=== PATIENT | female | born 1950 | race Caucasian/White ===

== ENCOUNTER 2018-03-05 00:03 | Inpatient (IN) | payer MEDICARE, OTHER ==
[2018-03-05] MEDS ORDERED: ONDANSETRON 4 MG/2 ML VIAL IVP STA ×2 (01:07→04:07)
[2018-03-05] MEDS ORDERED: SODIUM CHLORIDE 0.9% 1,000 ML IV STA ×2 (01:07)
[2018-03-05] MEDS ORDERED: MORPHINE SULFATE 4 MG/ML SYRINGE IVP STA (01:34)
[2018-03-05 01:51] LABS: Basophils % (A) 0 %; Eosinophils # (A) 0.1 k/uL (0-0.7); Eosinophils % (A) 0 %; HCT 39.4 % (34.0-46.0); HGB 13.8 gm/dL (11.4-16.0); Lymphocytes # (A) 1.2 k/uL (1.0-4.8); Lymphocytes % (A) 7 %; MCH 32.3 pg (25.0-35.0); MCV 92.3 fL (80.0-100.0); Mean Platelet Volume 6.2; Monocytes # (A) 1.1 k/uL (0-1.0); Monocytes % (A) 7 %; Neutrophils # (A) 13.9 k/uL (1.3-7.7); Neutrophils % (A) 84 %; Platelet Count 268 k/uL (150-450); RBC 4.27 m/uL (3.80-5.40); RDW 12.9 % (11.5-15.5); WBC 16.5 k/uL (3.8-10.6)
[2018-03-05 02:03] LABS: Albumin 4.3 g/dL (3.5-5.0); Calcium 9.2 mg/dL (8.4-10.2); Potassium 3.5 mmol/L (3.5-5.1); Total Bilirubin 0.9 mg/dL (0.2-1.3); Total Protein 6.7 g/dL (6.3-8.2)
--- NOTE | 2018-03-05 02:58 | CT ---
EXAMINATION TYPE: CT abdomen pelvis wo con DATE OF EXAM: 03/05/2018 COMPARISON: None HISTORY: NVD for 3 days, dehydrated CT DLP: 321.40 mGycm Automated exposure control for dose reduction was used. TECHNIQUE: Helical acquisition of images was performed from the lung bases through the pelvis. FINDINGS: Lung bases are clear of consolidation. There is minimal fibrotic change at the right medial lung base . There is small hiatal hernia. Liver shows no focal defect. There is clips from cholecystectomy. Splee n appears normal. There is no pancreatic mass. There is no adrenal mass. Kidneys have normal size and contour. There is no hydronephrosis. There is no retroperitoneal adenopathy. There is wall thickening and fat stranding around the mid sigmoid colon. There are numerous sigmoid d iverticula. There is no free air. There are spondylotic changes in the lumbar spine. There is osteosc lerosis at L1-2 disc. There is no ascites. Bladder distends smoothly. There is hysterectomy. Appendix is not seen. There is no sign of appendicitis. IMPRESSION: INFLAMMATORY CHANGES IN THE MID SIGMOID COLON CONSISTENT WITH DIVERTICULITIS. NO DRAINABLE FLUID JOHN ECTION.
--- NOTE | 2018-03-05 03:03 | ED ---
Nausea/Vomiting/Diarrhea HPI - General Source: patient, family, RN notes reviewed, old records reviewed Mode of arrival: wheelchair Limitations: no limitations <Rosaline Rincon - Last Filed: 03/05/18 03:50> <Bro Puga - Last Filed: 03/05/18 08:57> - General Chief complaint: Nausea/Vomiting/Diarrhea Stated complaint: NVD Time Seen by Provider: 03/05/18 01:07 - History of Present Illness Initial comments: Patient 67 old female present is a chief complaint of 3 days nausea vomiting diarrhea. No bloody emesis or stools. She reports just feels very weak and dehydrated this time. Patient states that she also started having some bilateral lower abdominal pain. Surgical history includes C-sections, hysterectomy, gallbladder removal and appendectomy. Denies any other symptoms such as back pain dysuria or hematuria this time. (Rosaline Rincon) - Related Data Home Medications Medication Instructions Recorded Confirmed Calcium Carbonate/Vitamin D3 1 tab PO DAILY 12/11/15 03/05/18 [Calcium 600 + Vit D Tablet] ALPRAZolam [Xanax] 0.25 mg PO TID PRN 03/05/18 03/05/18 Atorvastatin [Lipitor] 10 mg PO HS 03/05/18 03/05/18 Citalopram Hydrobromide [CeleXA] 20 mg PO HS 03/05/18 03/05/18 Clopidogrel Bisulfate [Plavix] 75 mg PO DAILY 03/05/18 03/05/18 Pantoprazole Sodium [Protonix] 40 mg PO DAILY 03/05/18 03/05/18 Previous Rx's Medication Instructions Recorded lamoTRIgine [LaMICtal] 150 mg PO BID #20 tab 01/13/14 Allergies Allergy/AdvReac Type Severity Reaction Status Date / Time aspirin Allergy Dyspnea Verified 03/05/18 06:54 Review of Systems ROS Other: All systems not noted in ROS Statement are negative. <Rosaline Rincon - Last Filed: 03/05/18 03:50> ROS Other: All systems not noted in ROS Statement are negative. <Bro Puga - Last Filed: 03/05/18 08:57> ROS Statement: Those systems with pertinent positive or pertinent negative responses have been documented in the HPI. Past Medical History Past Medical History: Asthma, Hyperlipidemia, Hypertension, Seizure Disorder Additional Past Medical History / Comment(s): head injury from falling on ice in 2004 History of Any Multi-Drug Resistant Organisms: None Reported Past Surgical History: Adenoidectomy, Appendectomy, Section, Cholecystectomy, Hysterectomy, Tonsillectomy Past Anesthesia/Blood Transfusion Reactions: No Reported Reaction Past Psychological History: Anxiety, Depression, Panic Disorder Smoking Status: Former smoker Past Alcohol Use History: Occasional Past Drug Use History: None Reported - Past Family History Mother Family Medical History: Cancer Additional Family Medical History / Comment(s): pancreatic cancer Father Family Medical History: Cancer, Chest Pain / Angina Additional Family Medical History / Comment(s): prostate cancer <Rosaline Rincon - Last Filed: 03/05/18 03:50> General Exam Limitations: no limitations General appearance: alert, in no apparent distress Head exam: Present: atraumatic, normocephalic, normal inspection Eye exam: Present: normal appearance, PERRL, EOMI. Absent: scleral icterus, conjunctival injection, periorbital swelling ENT exam: Present: normal exam, mucous membranes moist Neck exam: Present: normal inspection. Absent: tenderness, meningismus, lymphadenopathy Respiratory exam: Present: normal lung sounds bilaterally. Absent: respiratory distress, wheezes, rales, rhonchi, stridor Cardiovascular Exam: Present: regular rate, normal rhythm, normal heart sounds. Absent: systolic murmur, diastolic murmur, rubs, gallop, clicks GI/Abdominal exam: Present: tenderness (RLQ pain, LLQ pain), normal bowel sounds. Absent: soft, distended, guarding, rebound, rigid Extremities exam: Present: normal inspection, full ROM, normal capillary refill. Absent: tenderness, pedal edema, joint swelling, calf tenderness Back exam: Present: normal inspection Neurological exam: Present: alert, oriented X3, CN II-XII intact Psychiatric exam: Present: normal affect, normal mood Skin exam: Present: warm, dry, intact, normal color. Absent: rash <Rosaline Rincon - Last Filed: 03/05/18 03:50> <Bro Puga - Last Filed: 03/05/18 08:57> - General Exam Comments Initial Comments: Dehydrated 67-year-old female. Alert and oriented. (Rosaline Rincon) Vital Signs 03/05/18 03/05/18 03/05/18 00:18 03:29 07:22 Temperature 99.0 F 101 F H 98.9 F Pulse Rate 117 H 104 H 105 H Respiratory 18 18 18 Rate Blood Pressure 105/72 117/82 124/60 O2 Sat by Pulse 96 98 96 Oximetry Medical Decision Making - Lab Data Result diagrams: 03/05/18 01:05 03/05/18 01:05 - Radiology Data Radiology results: report reviewed <Rosaline Rincon - Last Filed: 03/05/18 03:50> - Lab Data Result diagrams: 03/05/18 01:05 03/05/18 01:05 <Bro Puga - Last Filed: 03/05/18 08:57> - Medical Decision Making 67-year-old female presented to [place] to [facility] of nausea and vomiting for the past 3 days, initial temperature in the emergency room did not show fever. Hours rechecked was 101. She has bilateral lower quadrant tenderness. Lab work was reviewed to his leukocytosis 16.5. Patient does have acute kidney injury due to severe dehydration over the past 3 days. Patient states he had a pelvis is evidence of diverticulitis. His biceps criteria tachycardic temperature and source of infection. Patient was started on Levaquin and Flagyl. Given aggressive IV fluid hydration. All questions answered return parameters were discussed. (Rosaline Rincon) - Lab Data Lab Results 03/05/18 03/05/18 Range/Units 01:05 01:05 WBC 16.5 H (3.8-10.6) k/uL RBC 4.27 (3.80-5.40) m/uL Hgb 13.8 (11.4-16.0) gm/dL Hct 39.4 (34.0-46.0) % MCV 92.3 (80.0-100.0) fL MCH 32.3 (25.0-35.0) pg MCHC 35.0 (31.0-37.0) g/dL RDW 12.9 (11.5-15.5) % Plt Count 268 (150-450) k/uL Neutrophils % 84 % Lymphocytes % 7 % Monocytes % 7 % Eosinophils % 0 % Basophils % 0 % Neutrophils # 13.9 H (1.3-7.7) k/uL Lymphocytes # 1.2 (1.0-4.8) k/uL Monocytes # 1.1 H (0-1.0) k/uL Eosinophils # 0.1 (0-0.7) k/uL Basophils # 0.0 (0-0.2) k/uL Sodium 140 (137-145) mmol/L Potassium 3.5 (3.5-5.1) mmol/L Chloride 104 (98-107) mmol/L Carbon Dioxide 24 (22-30) mmol/L Anion Gap 12 mmol/L BUN 21 H (7-17) mg/dL Creatinine 1.30 H (0.52-1.04) mg/dL Est GFR (CKD-EPI)AfAm 49 (>60 ml/min/1.73 sqM) Est GFR (CKD-EPI)NonAf 43 (>60 ml/min/1.73 sqM) Glucose 164 H (74-99) mg/dL Calcium 9.2 (8.4-10.2) mg/dL Total Bilirubin 0.9 (0.2-1.3) mg/dL AST 23 (14-36) U/L ALT 42 (9-52) U/L Alkaline Phosphatase 113 (38-126) U/L Total Protein 6.7 (6.3-8.2) g/dL Albumin 4.3 (3.5-5.0) g/dL Amylase 34 (30-110) U/L Lipase 15 L (23-300) U/L - Radiology Data Lipitor changes in the mid sigmoid colon consistent with diverticulitis. No drainable bowl fluid collection. (Rosaline Rincon) Disposition Is patient prescribed a controlled substance at d/c from ED?: No When asked, does pt state using other controlled substances?: No If prescribed controlled substance>3 days was MAPS reviewed?: No If opioid is for acute pain is fill amount 7 days or less?: No If Rx opioid, was Start Talking consent form obtained?: No Time of Disposition: 03:46 <Rosaline Rincon - Last Filed: 03/05/18 03:50> <Bro Puga - Last Filed: 03/05/18 08:57> Clinical Impression: Sepsis, SHAI (acute kidney injury), Diverticulitis Disposition: ADMITTED IP TO THIS HOSP Condition: Stable
[2018-03-05] MEDS ORDERED: SODIUM CHLORIDE 0.9% 1,000 ML IV ONE (03:41)
[2018-03-05] MEDS ORDERED: LEVOFLOXACIN 750MG-D5W PMX 750 MG in DEXTROSE/WATER 1 150ML.BAG IVPB STA (03:44)
[2018-03-05] MEDS ORDERED: metroNIDAZOLE-NS PMX 500 MG in SALINE 1 100ML.BAG IVPB STA (03:44)
[2018-03-05] MEDS ORDERED: ACETAMINOPHEN TAB 500 MG TAB PO STA (03:44)
[2018-03-05] MEDS ORDERED: ONDANSETRON 4 MG/2 ML VIAL IVP PRN (03:46)
[2018-03-05] MEDS ORDERED: MORPHINE SULFATE 4 MG/ML SYRINGE IV PRN (03:46)
[2018-03-05] MEDS ORDERED: LORazepam 2 MG/ML INJ IV PRN (03:46)
[2018-03-05] MEDS ORDERED: NALOXONE 0.4 MG/ML 1 ML VIAL IV PRN (03:46)
[2018-03-05] MEDS ORDERED: Acetaminophen-Codeine 300-30mg TAB PO PRN (03:46)
[2018-03-05] MEDS ORDERED: IBUPROFEN 400 MG TAB PO PRN (03:46)
[2018-03-05 05:48] LABS: Appearance,Urine Clear (Clear); Bacteria,Urine Rare /hpf; Bilirubin,Urine Negative (Negative); Blood,Urine Large (Negative); Cellular Casts,Urine 3 /lpf (0); Color,Urine Yellow; Glucose,Urine (UA) Negative (Negative); Hyaline Casts,Urine 31 /lpf (0-2); Ketones,Urine Negative (Negative); Leukocyte Esterase,Urine Negative (Negative); Mucus,Urine Occasional /hpf; Nitrite,Urine Negative (Negative); Protein,Urine 2+ (Negative); RBC,Urine 66 /hpf (0-5); Specific Gravity,Urine 1.025 (1.001-1.035); Squamous Epithelial Cell,Urine <1 /hpf (0-4); WBC,Urine 9 /hpf (0-5)
[2018-03-05] MEDS ORDERED: IPRATROPIUM-ALBUTEROL 3 ML NEB INHALATION PRN (06:19)
[2018-03-05] MEDS ORDERED: ALPRAZolam 0.25 MG TAB PO PRN ×2 (07:01→11:10)
--- NOTE | 2018-03-05 07:03 | P.HPIM ---
History of Present Illness H&P Date: 03/05/18 Chief Complaint: Nausea vomiting and diarrhea 67-year-old female with history of hypertension and asthma and seizures. Patient presented to the hospital with reports of intractable nausea and vomiting for the past 2-3 days. She reports that this is also associated with diarrhea nonbloody non-melanotic. She also reports some abdominal pain colicky in nature lower abdominal 8 out of 10 in severity radiating from one side to the other no specific relieving or aggravating factors. She denies any fevers but reports some chills. She is unable to keep anything down and reports feeling dehydrated. She denies any dysuria or hematuria or any flank pains. Denies any chest pain or trouble breathing. Denies any unsanitary source of food or any sick contacts. Denies any recent travel. Denies any focal neurologic deficits Review of Systems Pertinent positives as noted in HPI. All other systems were reviewed and are negative Past Medical History Past Medical History: Asthma, Hyperlipidemia, Hypertension, Seizure Disorder Additional Past Medical History / Comment(s): head injury from falling on ice in 2004 History of Any Multi-Drug Resistant Organisms: None Reported Past Surgical History: Adenoidectomy, Appendectomy, Section, Cholecystectomy, Hysterectomy, Tonsillectomy Past Anesthesia/Blood Transfusion Reactions: No Reported Reaction Past Psychological History: Anxiety, Depression, Panic Disorder Smoking Status: Former smoker Past Alcohol Use History: Occasional Past Drug Use History: None Reported - Past Family History Mother Family Medical History: Cancer Additional Family Medical History / Comment(s): pancreatic cancer Father Family Medical History: Cancer, Chest Pain / Angina Additional Family Medical History / Comment(s): prostate cancer Medications and Allergies Home Medications Medication Instructions Recorded Confirmed Type lamoTRIgine [LaMICtal] 150 mg PO BID #20 tab 01/13/14 03/05/18 Rx Calcium Carbonate/Vitamin D3 1 tab PO DAILY 12/11/15 03/05/18 History [Calcium 600 + Vit D Tablet] ALPRAZolam [Xanax] 0.25 mg PO TID PRN 03/05/18 03/05/18 History Atorvastatin [Lipitor] 10 mg PO HS 03/05/18 03/05/18 History Citalopram Hydrobromide [CeleXA] 20 mg PO HS 03/05/18 03/05/18 History Clopidogrel Bisulfate [Plavix] 75 mg PO DAILY 03/05/18 03/05/18 History Pantoprazole Sodium [Protonix] 40 mg PO DAILY 03/05/18 03/05/18 History Allergies Allergy/AdvReac Type Severity Reaction Status Date / Time aspirin Allergy Dyspnea Verified 03/05/18 06:54 Physical Exam Vitals: Vital Signs Temp Pulse Resp BP Pulse Ox 03/05/18 03:29 101 F H 104 H 18 117/82 98 03/05/18 00:18 99.0 F 117 H 18 105/72 96 Intake and Output 03/04/18 03/04/18 03/05/18 14:59 22:59 06:59 Other: Weight 71.668 kg Constitutional: No acute distress, conversant, pleasant Eyes: Anicteric sclerae, moist conjunctiva, no lid-lag Pupils equal round reactive to light ENMT: NC/AT Oropharynx clear, no erythema, or exudates Neck: Supple, FROM, no masses, or JVD No carotid bruits No thyromegaly Lungs: Clear to auscultation Clear to percussion Normal respiratory effort, no accessory muscle use Cardiovascular: Heart regular in rate and rhythm, No murmurs, gallops, or rubs No peripheral edema Abdominal: Soft abdomen, tenderness to palpation of the left lower quadrant with voluntary guarding no rebound or rigidity Abdomen moving with respiration Normoactive bowel sounds No hepatomegaly, No splenomegaly No palpable mass No abdominal wall hernia noted Skin: Normal temperature, tone, texture, turgor No induration No subcutaneous nodules No rash, lesions No ulcers Extremities: No digital cyanosis No clubbing Pedal pulses intact and symmetrical Radial pulses intact and symmetrical No calf tenderness Psychiatric: Alert and oriented to person, place and time Appropriate affect fair judgment Neuro Muscles Strength 5/5 in all 4 extremities Sensation to light touch grossly present throughout Cranial nerves II-XII grossly intact No focal sensory deficits Lymphatics: no palpable cervical or supraclavicular , or inguinal lymph nodes Results CBC & Chem 7: 03/05/18 01:05 03/05/18 01:05 Labs: Abnormal Lab Results - Last 24 Hours (Table) 03/05/18 03/05/18 03/05/18 Range/Units 01:05 01:05 05:16 WBC 16.5 H (3.8-10.6) k/uL Neutrophils # 13.9 H (1.3-7.7) k/uL Monocytes # 1.1 H (0-1.0) k/uL BUN 21 H (7-17) mg/dL Creatinine 1.30 H (0.52-1.04) mg/dL Glucose 164 H (74-99) mg/dL Lipase 15 L (23-300) U/L Urine Protein 2+ H (Negative) Urine Blood Large H (Negative) Urine RBC 66 H (0-5) /hpf Urine WBC 9 H (0-5) /hpf Urine Bacteria Rare H (None) /hpf Hyaline Casts 31 H (0-2) /lpf Urine Mucus Occasional H (None) /hpf Assessment and Plan Assessment: 67-year-old female with history of hypertension and seizures. Patient admitted to the hospital as inpatinet with anticipated length of stay of more than than 48 hours for acute diverticulitis and acute kidney injury due to decreased by mouth intake over the past 3 days from repeated nausea and vomiting. Plan: Sepsis secondary to acute diverticulitis Acute diverticulitis IV antibiotic with Levaquin and Flagyl, due to a she nausea and vomiting Symptomatic control IV fluid hydration Pain control Nothing by mouth Acute kidney injury secondary to prerenal ATN from dehydration and poor by mouth intake Avoid nephrotoxic meds IV fluid hydration Monitor urine output Monitor renal function History of hypertension currently controlled without medications History of seizure currently stable Continue Lamictal DVT prophylaxis on heparin subcu 3 times a day Surrogate decision-maker: Bertram patient CODE STATUS: Full code Anticipated discharge: 48-[address]: Home A total of 50 minutes was spent on the care of this complex patient more than 50 % of the time was spent in counseling and care coordination.
[2018-03-05] MEDS ORDERED: PANTOPRAZOLE 40 MG TABLET PO SCH (07:30)
[2018-03-05] MEDS ORDERED: NON-FORMULARY DRUG (Omeprazole [Omeprazole] 20 MG) PO SCH (09:00)
[2018-03-05] MEDS ORDERED: lamoTRIgine 100 MG TAB PO SCH (09:00)
[2018-03-05] MEDS ORDERED: PANTOPRAZOLE 40 MG/10 ML VIAL IV SCH (09:00)
[2018-03-05] MEDS: LAMOTRIGINE 150 MG PO SCH ×2 (12:17→21:24)
[2018-03-05] MEDS: CLOPIDOGREL 75 MG TAB PO SCH (12:18)
[2018-03-05] MEDS: HEPARIN SODIUM,PORCINE 5,000 UNIT/ML 1 ML VIAL SQ SCH ×2 (12:18→17:11)
[2018-03-05] MEDS: lamoTRIgine 100 MG TAB PO SCH ×2 (12:54→21:24)
--- NOTE | 2018-03-05 13:40 | P.PN ---
Progress Note - Text Progress Note Date: 03/05/18 The patient is a 67-year-old female admitted with sepsis due to acute diverticulitis, presenting with leukocytosis and fever, negative lactic acidemia and is currently on IV antibiotics with Flagyl and Levaquin. Patient continues to be nauseated all change her to Zofran 4 mg IV every 4 when necessary and Phenergan 12.5 every 6 when necessary. Continue other supportive therapies and IV fluids we'll resume her Lamictal and continue to follow her clinical course
[2018-03-05] MEDS: ONDANSETRON 4 MG/2 ML VIAL IVP PRN ×2 (17:11→20:46)
[2018-03-05] MEDS: ALPRAZOLAM 1 MG PO PRN (20:39)
[2018-03-05] MEDS: CITALOPRAM HYDROBROMIDE 20 MG TAB PO SCH (20:40)
[2018-03-05] MEDS: ATORVASTATIN 10 MG TAB PO SCH (20:40)
[2018-03-05] MEDS ORDERED: SIMVASTATIN PO SCH (21:00)
[2018-03-06] MEDS: HEPARIN SODIUM,PORCINE 5,000 UNIT/ML 1 ML VIAL SQ SCH ×3 (01:05→16:35)
[2018-03-06] MEDS: SODIUM CHLORIDE 0.9% 1,000 ML IV SCH ×4 (02:46→13:41)
[2018-03-06] MEDS: ALPRAZOLAM 1 MG PO PRN ×3 (04:19→21:05)
[2018-03-06] MEDS: ONDANSETRON 4 MG/2 ML VIAL IVP PRN ×4 (04:21→21:09)
[2018-03-06] MEDS: lamoTRIgine 100 MG TAB PO SCH ×2 (08:20→21:06)
[2018-03-06] MEDS: PANTOPRAZOLE 40 MG TABLET PO SCH (08:22)
[2018-03-06] MEDS: CLOPIDOGREL 75 MG TAB PO SCH ×2 (08:23→21:04)
[2018-03-06] MEDS: LAMOTRIGINE 150 MG PO SCH ×2 (08:25→21:04)
[2018-03-06 11:34] LABS: ALT 30 U/L (9-52); AST 18 U/L (14-36); Albumin 2.7 g/dL (3.5-5.0); Alkaline Phosphatase 67 U/L (38-126); Anion Gap 4 mmol/L; Blood Urea Nitrogen 10 mg/dL (7-17); Calcium 7.9 mg/dL (8.4-10.2); Carbon Dioxide 23 mmol/L (22-30); Chloride 114 mmol/L (98-107); Glucose 85 mg/dL (74-99); Potassium 3.3 mmol/L (3.5-5.1); Sodium 141 mmol/L (137-145); Total Bilirubin 0.3 mg/dL (0.2-1.3); Total Protein 4.5 g/dL (6.3-8.2)
[2018-03-06 12:00] LABS: Basophils % (A) 0 %; Eosinophils # (A) 0.2 k/uL (0-0.7); Eosinophils % (A) 2 %; HCT 30.5 % (34.0-46.0); Lymphocytes # (A) 1.4 k/uL (1.0-4.8); Lymphocytes % (A) 15 %; MCH 31.5 pg (25.0-35.0); MCHC 33.2 g/dL (31.0-37.0); Mean Platelet Volume 6.3; Monocytes # (A) 0.5 k/uL (0-1.0); Monocytes % (A) 6 %; Neutrophils # (A) 6.6 k/uL (1.3-7.7); Neutrophils % (A) 75 %; Platelet Count 234 k/uL (150-450); RBC 3.22 m/uL (3.80-5.40); WBC 8.8 k/uL (3.8-10.6)
[2018-03-06 12:02] LABS: HGB 10.1 gm/dL (11.4-16.0)
[2018-03-06] MEDS: ACETAMINOPHEN TAB 325 MG TAB PO PRN ×2 (12:05→20:06)
[2018-03-06] MEDS: LEVOFLOXACIN 750MG-D5W PMX 750 MG in DEXTROSE/WATER 1 150ML.BAG IVPB SCH (12:06)
[2018-03-06] MEDS ORDERED: SODIUM CHLORIDE 0.9% 1,000 ML IV ONE (13:31)
--- NOTE | 2018-03-06 13:34 | P.PN ---
Subjective Progress Note Date: 03/06/18 Patient ambulatory to the restroom, reports diarrhea abdominal pain is slightly improved. Denies any fever or chills, still appears to be tachycardic but is normotensive, no acute events overnight Objective - Vital Signs Vital signs: Vital Signs Temp 98.4 F 03/06/18 06:13 Pulse 105 H 03/06/18 06:13 Resp 18 03/06/18 06:13 BP 145/66 03/06/18 06:13 Pulse Ox 93 L 03/06/18 06:13 Intake & Output 03/05/18 03/06/18 03/06/18 18:59 06:59 18:59 Intake Total 700 960 960 Balance 700 960 960 Weight 71.668 kg Intake: IV 960 960 Sodium Chloride 0.9% 1, 960 960 000 ml @ 120 mls/hr IV . Q8H20M [facility] Rx#:[id number] Intake, IV Titration 700 Amount Sodium Chloride 0.9% 1, 700 000 ml @ 100 mls/hr IV . Q10H STA Rx#:[id number] Other: Voiding Method Toilet Toilet Toilet # Voids 2 - Exam Constitutional: No acute distress, conversant, pleasant Eyes: Anicteric sclerae, moist conjunctiva, no lid-lag, PERRLA ENMT: NC/AT,Oropharynx clear, no erythema, exudates Neck:Supple, FROM, no masses, or JVD, No carotid bruits; No thyromegaly Lungs: Clear to auscultation, Clear to percussion, Normal respiratory effort, no accessory muscle use Cardiovascular: Heart regular in rate and rhythm, No murmurs, gallops, or rubs no peripheral edema Abdominal: Soft tender to palpation in the lower abdomen nom distended, no guarding, no rebound or rigidity, Normoactive bowel sounds No hepatomegaly, No splenomegaly, No palpable mass No abdominal wall hernia noted Skin: Normal temperature, tone, texture, turgor, No induration No subcutaneous nodules, No rash, lesions, No ulcers Extremities:No digital cyanosis No clubbing, Pedal pulses intact and symmetrical Radial pulses intact and symmetrical Normal gait and station, No calf tenderness Psychiatric: Alert and oriented to person, place and time, Appropriate affect Intact judgement Neuro: Muscles Strength 5/5 in all 4 extremities, Sensation to light touch grossly present throughout, Cranial nerves II-XII grossly intact. No focal sensory deficits - Labs CBC & Chem 7: 03/06/18 10:58 03/06/18 10:58 Labs: Abnormal Lab Results - Last 24 Hours (Table) 03/06/18 03/06/18 Range/Units 10:58 10:58 RBC 3.22 L (3.80-5.40) m/uL Hgb 10.1 L D (11.4-16.0) gm/dL Hct 30.5 L (34.0-46.0) % Potassium 3.3 L (3.5-5.1) mmol/L Chloride 114 H (98-107) mmol/L Calcium 7.9 L (8.4-10.2) mg/dL Total Protein 4.5 L (6.3-8.2) g/dL Albumin 2.7 L (3.5-5.0) g/dL Microbiology - Last 24 Hours (Table) 03/05/18 04:44 Blood Culture - Preliminary Blood No Growth after 24 hours Assessment and Plan (1) Sepsis Narrative/Plan: * Patient afebrile leukocytosis resolving, still tachycardic we'll repeat a 1 L normal saline bolus * Continue IV Flagyl and Levaquin * Check stool for C. diff Current Visit: Yes Status: Acute Code(s): A41.9 - SEPSIS, UNSPECIFIED ORGANISM SNOMED Code(s): 61333835 (2) SHAI (acute kidney injury) Narrative/Plan: * Prerenal ATN due to sepsis * Now resolved * Continue IV fluids Current Visit: Yes Status: Acute Code(s): N17.9 - ACUTE KIDNEY FAILURE, UNSPECIFIED SNOMED Code(s): 77622780 (3) Diverticulitis Narrative/Plan: * And treatment as above * Continue supportive treatment with morphine and Zofran when necessary Current Visit: Yes Status: Acute Code(s): K57.92 - DVTRCLI OF INTEST, PART UNSP, W/O PERF OR ABSCESS W/O BLEED SNOMED Code(s): 799522239 (4) Essential hypertension Narrative/Plan: * Blood pressure goal * Continue to monitor Current Visit: Yes Status: Acute Code(s): I10 - ESSENTIAL (PRIMARY) HYPERTENSION SNOMED Code(s): 03930115 (5) Anemia Narrative/Plan: * Check Hemoccult iron studies * Follow-up CBC * Possibly dilutional Current Visit: Yes Status: Acute Code(s): D64.9 - ANEMIA, UNSPECIFIED SNOMED Code(s): 375689394 Plan: Anticipate discharge in 1-2 days
[2018-03-06] MEDS: POTASSIUM CHLORIDE 20 MEQ in WATER FOR INJECTION 1 100ML.BAG IVPB SCH ×2 (14:25→16:42)
[2018-03-06] MEDS: metroNIDAZOLE-NS PMX 500 MG in SALINE 1 100ML.BAG IVPB SCH (16:42)
[2018-03-06] MEDS: ATORVASTATIN 10 MG TAB PO SCH (21:03)
[2018-03-06] MEDS: CITALOPRAM HYDROBROMIDE 20 MG TAB PO SCH (21:04)
[2018-03-07] MEDS ORDERED: ACETAMINOPHEN TAB 325 MG TAB ONE (01:21)
[2018-03-07] MEDS ORDERED: HEPARIN SODIUM,PORCINE 5,000 UNIT/ML 1 ML VIAL ONE (01:21)
[2018-03-07] MEDS ORDERED: ONDANSETRON 4 MG/2 ML VIAL ONE (01:21)
[2018-03-07 02:22] LABS: Iron Saturation 8.85 (12.00-45.00)
[2018-03-07] MEDS: SODIUM CHLORIDE 0.9% 1,000 ML IV SCH ×4 (04:32→21:23)
[2018-03-07] MEDS: HEPARIN SODIUM,PORCINE 5,000 UNIT/ML 1 ML VIAL SQ SCH ×2 (04:33→07:59)
[2018-03-07] MEDS: metroNIDAZOLE-NS PMX 500 MG in SALINE 1 100ML.BAG IVPB SCH ×4 (04:33→23:29)
[2018-03-07] MEDS: ALPRAZOLAM 1 MG PO PRN ×2 (06:21→16:35)
[2018-03-07] MEDS: PANTOPRAZOLE 40 MG TABLET PO SCH (07:58)
[2018-03-07] MEDS: LAMOTRIGINE 150 MG PO SCH ×2 (07:58→21:21)
[2018-03-07] MEDS: lamoTRIgine 100 MG TAB PO SCH (08:01)
[2018-03-07 08:33] LABS: Basophils % (A) 0 %; Eosinophils # (A) 0.1 k/uL (0-0.7); Eosinophils % (A) 3 %; HCT 29.2 % (34.0-46.0); HGB 9.7 gm/dL (11.4-16.0); Lymphocytes % (A) 18 %; MCH 31.9 pg (25.0-35.0); MCHC 33.4 g/dL (31.0-37.0); MCV 95.5 fL (80.0-100.0); Mean Platelet Volume 6.7; Monocytes # (A) 0.3 k/uL (0-1.0); Monocytes % (A) 5 %; Neutrophils % (A) 72 %; Platelet Count 255 k/uL (150-450); RBC 3.06 m/uL (3.80-5.40); RDW 12.9 % (11.5-15.5); WBC 5.5 k/uL (3.8-10.6)
[2018-03-07 09:22] LABS: Anion Gap 7 mmol/L; Blood Urea Nitrogen 6 mg/dL (7-17); Calcium 7.9 mg/dL (8.4-10.2); Carbon Dioxide 21 mmol/L (22-30); Chloride 112 mmol/L (98-107); Glucose 80 mg/dL (74-99); Sodium 140 mmol/L (137-145)
[2018-03-07] MEDS ORDERED: Potassium Replacement Protocol 1 EACH MISC MISCELLANE PRN (09:33)
[2018-03-07] MEDS: POTASSIUM CHLORIDE 10 MEQ in WATER FOR INJECTION 1 100ML.BAG IVPB SCH ×6 (10:44→17:29)
--- NOTE | 2018-03-07 12:03 | P.PN ---
Subjective Progress Note Date: 03/07/18 Patient ambulatory to the restroom, reports diarrhea is improving and nausea seems to have resolved, denies any abdominal pain. Denies any fever or chills, still patient's tachycardia has resolved, noted hypokalemia overnight Objective - Vital Signs Vital signs: Vital Signs Temp 98.0 F 03/07/18 05:00 Pulse 83 03/07/18 05:00 Resp 16 03/07/18 05:00 BP 185/79 03/07/18 05:00 Pulse Ox 94 L 03/07/18 05:00 Intake & Output 03/06/18 03/07/18 03/07/18 18:59 06:59 18:59 Intake Total 960 940 Balance 960 940 Intake: IV 960 940 Sodium Chloride 0.9% 1, 960 840 000 ml @ 120 mls/hr IV . Q8H20M [facility] Rx#:[id number] metroNIDAZOLE-NS PMX 500 100 mg In Saline 1 100ml.bag @ 100 mls/hr IVPB Q8HR [facility] Rx#:[id number] Other: Voiding Method Toilet Toilet Toilet # Voids 2 - Exam Constitutional: No acute distress, conversant, pleasant Eyes: Anicteric sclerae, moist conjunctiva, no lid-lag, PERRLA ENMT: NC/AT,Oropharynx clear, no erythema, exudates Neck:Supple, FROM, no masses, or JVD, No carotid bruits; No thyromegaly Lungs: Clear to auscultation, Clear to percussion, Normal respiratory effort, no accessory muscle use Cardiovascular: Heart regular in rate and rhythm, No murmurs, gallops, or rubs no peripheral edema Abdominal: Soft tender to palpation in the lower abdomen nom distended, no guarding, no rebound or rigidity, Normoactive bowel sounds No hepatomegaly, No splenomegaly, No palpable mass No abdominal wall hernia noted Skin: Normal temperature, tone, texture, turgor, No induration No subcutaneous nodules, No rash, lesions, No ulcers Extremities:No digital cyanosis No clubbing, Pedal pulses intact and symmetrical Radial pulses intact and symmetrical Normal gait and station, No calf tenderness Psychiatric: Alert and oriented to person, place and time, Appropriate affect Intact judgement Neuro: Muscles Strength 5/5 in all 4 extremities, Sensation to light touch grossly present throughout, Cranial nerves II-XII grossly intact. No focal sensory deficits - Labs CBC & Chem 7: 03/07/18 07:45 03/07/18 07:45 Labs: Abnormal Lab Results - Last 24 Hours (Table) 03/06/18 03/06/18 03/06/18 Range/Units 10:58 10:58 21:00 RBC 3.22 L (3.80-5.40) m/uL Hgb 10.1 L D (11.4-16.0) gm/dL Hct 30.5 L (34.0-46.0) % Potassium (3.5-5.1) mmol/L Chloride (98-107) mmol/L Carbon Dioxide (22-30) mmol/L BUN (7-17) mg/dL Calcium (8.4-10.2) mg/dL Iron 17 L (50-170) ug/dL TIBC 192 L (228-460) ug/dL Iron Saturation 8.85 L (12.00-45.00) Stool Occult Blood Positive H (Negative) 03/07/18 03/07/18 Range/Units 07:45 07:45 RBC 3.06 L (3.80-5.40) m/uL Hgb 9.7 L (11.4-16.0) gm/dL Hct 29.2 L (34.0-46.0) % Potassium 3.0 L* (3.5-5.1) mmol/L Chloride 112 H (98-107) mmol/L Carbon Dioxide 21 L (22-30) mmol/L BUN 6 L (7-17) mg/dL Calcium 7.9 L (8.4-10.2) mg/dL Iron (50-170) ug/dL TIBC (228-460) ug/dL Iron Saturation (12.00-45.00) Stool Occult Blood (Negative) Microbiology - Last 24 Hours (Table) 03/05/18 04:44 Blood Culture - Preliminary Blood No Growth after 48 hours Assessment and Plan (1) Sepsis Narrative/Plan: * Resolved * Patient afebrile leukocytosis resolving, patient hemodynamically stable * Continue IV Flagyl and Levaquin * C. diff negative Current Visit: Yes Status: Acute Code(s): A41.9 - SEPSIS, UNSPECIFIED ORGANISM SNOMED Code(s): 57248769 (2) Anemia Narrative/Plan: * Iron studies suggested acute blood loss with iron deficiency anemia * Hemoccult-positive, also suggesting a possible GI bleed secondary to diverticulitis * Consult GI for further recommendations likely not a candidate for colonoscopy in the setting of acute diverticulitis but will need to be followed up in the outpatient setting * Continue to monitor hemoglobin appears to be stabilizing Current Visit: Yes Status: Acute Code(s): D64.9 - ANEMIA, UNSPECIFIED SNOMED Code(s): 332700447 (3) Diverticulitis Narrative/Plan: * And treatment as above * Continue supportive treatment with morphine and Zofran when necessary * We'll advance diet to clear liquids today Current Visit: Yes Status: Acute Code(s): K57.92 - DVTRCLI OF INTEST, PART UNSP, W/O PERF OR ABSCESS W/O BLEED SNOMED Code(s): 203634072 (4) Hypokalemia Narrative/Plan: Likely secondary to diarrhea * C. diff negative * Initiated potassium replacement protocol Current Visit: Yes Status: Acute Code(s): E87.6 - HYPOKALEMIA SNOMED Code( s): 13327015 (5) Essential hypertension Narrative/Plan: * Blood pressure elevated today we'll recheck, patient reports that her PCP discontinued all her prior blood pressure medications 2 months ago * Continue to monitor Current Visit: Yes Status: Acute Code(s): I10 - ESSENTIAL (PRIMARY) HYPERTENSION SNOMED Code(s): 36033794 (6) SHAI (acute kidney injury) Narrative/Plan: * Prerenal ATN due to sepsis * Now resolved * Continue IV fluids Current Visit: Yes Status: Resolved Code(s): N17.9 - ACUTE KIDNEY FAILURE, UNSPECIFIED SNOMED Code(s): 19745867 Plan: Disposition * Approaching discharge in 1-2 days
[2018-03-07] MEDS: LEVOFLOXACIN 750MG-D5W PMX 750 MG in DEXTROSE/WATER 1 150ML.BAG IVPB SCH (12:56)
[2018-03-07] MEDS: amLODIPine 10 MG TAB PO SCH (13:51)
[2018-03-07] MEDS: ONDANSETRON 4 MG/2 ML VIAL IVP PRN (16:26)
[2018-03-07] MEDS: ACETAMINOPHEN TAB 325 MG TAB PO PRN ×2 (16:27→22:09)
[2018-03-07] MEDS: ATORVASTATIN 10 MG TAB PO SCH (21:21)
[2018-03-07] MEDS: CLOPIDOGREL 75 MG TAB PO SCH (21:22)
[2018-03-07] MEDS: CITALOPRAM HYDROBROMIDE 20 MG TAB PO SCH (22:07)
[2018-03-08] MEDS: ONDANSETRON 4 MG/2 ML VIAL IVP PRN ×3 (00:53→17:09)
[2018-03-08] MEDS: ALPRAZOLAM 1 MG PO PRN ×3 (02:57→20:06)
[2018-03-08 08:00] LABS: Basophils % (A) 0 %; Eosinophils # (A) 0.2 k/uL (0-0.7); Eosinophils % (A) 4 %; HCT 32.3 % (34.0-46.0); HGB 10.9 gm/dL (11.4-16.0); Lymphocytes % (A) 20 %; MCH 31.6 pg (25.0-35.0); MCHC 33.9 g/dL (31.0-37.0); MCV 93.4 fL (80.0-100.0); Mean Platelet Volume 6.2; Monocytes # (A) 0.4 k/uL (0-1.0); Monocytes % (A) 7 %; Neutrophils # (A) 3.5 k/uL (1.3-7.7); Neutrophils % (A) 67 %; Platelet Count 314 k/uL (150-450); RBC 3.46 m/uL (3.80-5.40); RDW 12.8 % (11.5-15.5); WBC 5.1 k/uL (3.8-10.6)
[2018-03-08 08:18] LABS: Anion Gap 10 mmol/L; Blood Urea Nitrogen 4 mg/dL (7-17); Calcium 8.4 mg/dL (8.4-10.2); Carbon Dioxide 25 mmol/L (22-30); Chloride 106 mmol/L (98-107); Glucose 87 mg/dL (74-99); Potassium 3.2 mmol/L (3.5-5.1); Sodium 141 mmol/L (137-145)
[2018-03-08] MEDS ORDERED: ACETAMINOPHEN TAB 500 MG TAB PO PRN (08:32)
[2018-03-08] MEDS: SODIUM CHLORIDE 0.9% 1,000 ML IV SCH ×3 (08:46→20:41)
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
[2018-03-08] MEDS: metroNIDAZOLE-NS PMX 500 MG in SALINE 1 100ML.BAG IVPB SCH ×2 (08:56→17:09)
[2018-03-08] MEDS: PANTOPRAZOLE 40 MG TABLET PO SCH (08:57)
[2018-03-08] MEDS: amLODIPine 10 MG TAB PO SCH (08:59)
[2018-03-08] MEDS: LAMOTRIGINE 150 MG PO SCH ×2 (08:59→20:07)
[2018-03-08] MEDS: POTASSIUM CHLORIDE 20 MEQ in WATER FOR INJECTION 1 100ML.BAG IVPB SCH ×2 (10:35→13:25)
[2018-03-08] MEDS: PROMETHAZINE INJ 12.5 MG in SODIUM CHLORIDE 0.9% 50 ML IVPB PRN ×2 (11:28→18:15)
--- NOTE | 2018-03-08 11:56 | P.PN ---
Subjective Progress Note Date: 03/08/18 Principal diagnosis: abdominal pain Patient is a 68 yo CF with a past medical history of asthma, hypertension, dyslipidemia, and seizure disorder who presented with complaint of nausea, vomiting, and diarrhea. She was found to have diverticulitis with sepsis and was started on antibiotics, IV fluids, and pain control. She has progressed well throughout her hospital stay. She has been seen by GI who recommended outpatient EGD and colonoscopy and this has been arranged for April 13. They also have recommended a low residue diet and following up a CBC in 5-7 days. Patient seen and examined at bedside. She has not been eating because she does not tolerate sugars are well. She is still slightly nauseous but her abdominal pain is 80% better. She denies any diarrhea but has been passing a lot of gas. No chest pain or shortness of breath. Objective - Vital Signs Vital signs: Vital Signs Temp 98.6 F 03/08/18 07:00 Pulse 96 03/08/18 07:00 Resp 16 03/08/18 07:00 BP 174/77 03/08/18 07:00 Pulse Ox 94 L 03/08/18 07:00 Intake & Output 03/07/18 03/08/18 03/08/18 18:59 06:59 18:59 Intake Total 1450 650 Balance 1450 650 Weight 71.668 kg Intake: IV 1000 550 Sodium Chloride 0.9% 1, 900 550 000 ml @ 120 mls/hr IV . Q8H20M [facility] Rx#:[id number] metroNIDAZOLE-NS PMX 500 100 mg In Saline 1 100ml.bag @ 100 mls/hr IVPB Q8HR [facility] Rx#:[id number] Intake, IV Titration 450 100 Amount Levofloxacin 750Mg-D5w 150 Pmx 750 mg In Dextrose/ Water 1 150ml.bag @ 100 mls/hr IVPB Q24H [facility] Rx#: [id number] Potassium Chloride 10 meq 300 In Water For Injection 1 100ml.bag @ 100 mls/hr IVPB Q1HR [facility] Rx#: [id number] metroNIDAZOLE-NS PMX 500 100 mg In Saline 1 100ml.bag @ 100 mls/hr IVPB Q8HR [facility] Rx#:[id number] Other: Voiding Method Toilet Toilet Toilet # Emeses 1 - Exam General: ill appearing, mild distress, appears at stated age Derm: warm, dry Head: atraumatic, normocephalic, symmetric Eyes: EOMI, no lid lag, anicteric sclera Mouth: no lip lesion, mucus membranes moist Cardiovascular: S1S2 reg, no murmur, positive posterior tibial pulse bilateral, Lungs: decreased bs b/l bilateral, no rhonchi, no rales , no accessory muscle use Abdominal: soft, +tender to palpation RLQ, no guarding, no appreciable organomegaly Ext: no gross muscle atrophy, no edema, no contractures Neuro: CN II-XI grossly intact, no focal neuro deficits Psych: Alert, oriented, appropriate affect - Labs CBC & Chem 7: 03/08/18 07:07 03/08/18 07:07 Labs: Abnormal Lab Results - Last 24 Hours (Table) 03/08/18 03/08/18 Range/Units 07:07 07:07 RBC 3.46 L (3.80-5.40) m/uL Hgb 10.9 L (11.4-16.0) gm/dL Hct 32.3 L (34.0-46.0) % Potassium 3.2 L (3.5-5.1) mmol/L BUN 4 L (7-17) mg/dL Microbiology - Last 24 Hours (Table) 03/05/18 04:44 Blood Culture - Preliminary Blood No Growth after 72 hours Assessment and Plan Assessment: Diverticulitis with sepsis -Continue with Levaquin, Flagyl -IV fluids -Advance diet to full liquids -pain control -antiemetics -GI recommendations anticipated, outpatient EGD and colonoscopy April 13 Hypokalemia -Replace and recheck in a.m. Hypertension, controlled -Continue with Norvasc - follow blood pressure Iron deficiency anemia - follow CBC -outpatient ED and Colon Resolved: SHAI Chronic: Dyslipidemia Seizure disorder Coronary artery disease DVT prophylaxis: Heparin Discussed with: Patient, nursing Anticipated discharge: 1-[address]: home A total of 25 minutes was spent on the care of this complex patient more than 50 % of the time was spent in counseling and care coordination.
[2018-03-08] MEDS: LEVOFLOXACIN 750MG-D5W PMX 750 MG in DEXTROSE/WATER 1 150ML.BAG IVPB SCH (12:55)
[2018-03-08] MEDS: ACETAMINOPHEN 500 MG TABLET PO PRN (17:10)
[2018-03-08] MEDS: ATORVASTATIN 10 MG TAB PO SCH (20:06)
[2018-03-08] MEDS: CLOPIDOGREL 75 MG TAB PO SCH (20:07)
[2018-03-08] MEDS: CITALOPRAM HYDROBROMIDE 20 MG TAB PO SCH (20:07)
[2018-03-09] MEDS: metroNIDAZOLE-NS PMX 500 MG in SALINE 1 100ML.BAG IVPB SCH ×2 (05:10→08:41)
[2018-03-09 08:04] LABS: HCT 33.1 % (34.0-46.0); HGB 11.3 gm/dL (11.4-16.0); MCH 31.8 pg (25.0-35.0); MCHC 34.2 g/dL (31.0-37.0); Mean Platelet Volume 6.1; Platelet Count 291 k/uL (150-450); RBC 3.56 m/uL (3.80-5.40); RDW 12.9 % (11.5-15.5); WBC 6.3 k/uL (3.8-10.6)
[2018-03-09 08:15] LABS: Anion Gap 8 mmol/L; Blood Urea Nitrogen 7 mg/dL (7-17); Calcium 8.2 mg/dL (8.4-10.2); Carbon Dioxide 24 mmol/L (22-30); Chloride 106 mmol/L (98-107); Glucose 83 mg/dL (74-99); Potassium 3.2 mmol/L (3.5-5.1); Sodium 138 mmol/L (137-145)
[2018-03-09] MEDS ORDERED: Potassium Replacement Protocol 1 EACH MISC MISCELLANE PRN (08:32)
[2018-03-09] MEDS: LAMOTRIGINE 150 MG PO SCH ×2 (08:39→20:33)
[2018-03-09] MEDS: PANTOPRAZOLE 40 MG TABLET PO SCH (08:39)
[2018-03-09] MEDS: SODIUM CHLORIDE 0.9% 1,000 ML IV SCH ×2 (08:41→16:43)
[2018-03-09] MEDS: amLODIPine 10 MG TAB PO SCH (08:43)
[2018-03-09] MEDS: ALPRAZOLAM 1 MG PO PRN ×2 (09:28→20:31)
[2018-03-09] MEDS: ACETAMINOPHEN 500 MG TABLET PO PRN ×2 (10:39→16:44)
[2018-03-09] MEDS: POTASSIUM CHLORIDE ER 20 MEQ TAB.ER PO SCH ×2 (10:39→11:47)
[2018-03-09] MEDS: ONDANSETRON 4 MG/2 ML VIAL IVP PRN (11:10)
[2018-03-09] MEDS: LEVOFLOXACIN 750MG-D5W PMX 750 MG in DEXTROSE/WATER 1 150ML.BAG IVPB SCH (11:47)
[2018-03-09 13:49] VITALS: BMI 28.3
[2018-03-09] MEDS: metroNIDAZOLE 500 MG TAB PO SCH ×2 (16:47→22:09)
--- NOTE | 2018-03-09 17:06 | P.PN ---
Subjective Progress Note Date: 03/09/18 (Delayed charting patient seen at 10:40 AM) Principal diagnosis: abdominal pain Patient is a 68 yo CF with a past medical history of asthma, hypertension, dyslipidemia, and seizure disorder who presented with complaint of nausea, vomiting, and diarrhea. She was found to have diverticulitis with sepsis and was started on antibiotics, IV fluids, and pain control. She has progressed well throughout her hospital stay. She has been seen by GI who recommended outpatient EGD and colonoscopy and this has been arranged for April 13. They also have recommended a low residue diet and following up a CBC in 5-7 days. Her diet was increased on 03/08/18. She still continued to have nausea and some loose stools. Patient seen and examined at bedside. Ate a very small amount for dinner last night. Unable to tolerate breakfast secondary to severe nausea. Had several bowel movements throughout the night with blood. No abdominal pain. No chest pain or shortness of breath. Feeling slightly dizzy or off today. Objective - Vital Signs Vital signs: Vital Signs Temp 99.1 F 03/09/18 15:00 Pulse 107 H 03/09/18 15:00 Resp 20 03/09/18 15:00 BP 144/67 03/09/18 15:00 Pulse Ox 97 03/09/18 15:00 Intake & Output 03/08/18 03/09/18 03/09/18 18:59 06:59 18:59 Intake Total 1440 2130 Balance 1440 2130 Weight 72.5 kg 72.5 kg Intake: IV 700 1200 Sodium Chloride 0.9% 1, 700 1200 000 ml @ 120 mls/hr IV . Q8H20M [facility] Rx#:[id number] Intake, IV Titration 150 250 Amount Levofloxacin 750Mg-D5w 150 Pmx 750 mg In Dextrose/ Water 1 150ml.bag @ 100 mls/hr IVPB Q24H [facility] Rx#: [id number] Promethazine Inj 12.5 mg 50 In Sodium Chloride 0.9% 50 ml @ 200 mls/hr IVPB Q6HR [facility] Rx#:[id number] metroNIDAZOLE-NS PMX 500 100 100 mg In Saline 1 100ml.bag @ 100 mls/hr IVPB Q8HR [facility] Rx#:[id number] Oral 590 680 Other: Voiding Method Toilet Toilet Toilet # Voids 3 1 3 # Bowel Movements 1 1 - Exam General: ill appearing, no distress, appears at stated age Derm: warm, dry Head: atraumatic, normocephalic, symmetric Eyes: EOMI, no lid lag, anicteric sclera Mouth: no lip lesion, mucus membranes moist Cardiovascular: S1S2 reg, no murmur, positive posterior tibial pulse bilateral, Lungs: decreased bs b/l bilateral, no rhonchi, no rales , no accessory muscle use Abdominal: soft, +tender to palpation RLQ, no guarding, no appreciable organomegaly Ext: no gross muscle atrophy, no edema, no contractures Neuro: CN II-XI grossly intact, no focal neuro deficits Psych: Alert, oriented, appropriate affect - Labs CBC & Chem 7: 03/09/18 06:50 03/09/18 14:41 Labs: Abnormal Lab Results - Last 24 Hours (Table) 03/09/18 03/09/18 03/09/18 Range/Units 06:50 06:50 14:41 RBC 3.56 L (3.80-5.40) m/uL Hgb 11.3 L (11.4-16.0) gm/dL Hct 33.1 L (34.0-46.0) % Potassium 3.2 L 3.4 L (3.5-5.1) mmol/L Calcium 8.2 L (8.4-10.2) mg/dL Microbiology - Last 24 Hours (Table) 03/05/18 04:44 Blood Culture - Preliminary Blood No Growth after 96 hours Assessment and Plan Assessment: Diverticulitis with sepsis -Continue with Levaquin, Flagyl -IV fluids -Full liquid diet -pain control -antiemetics -GI recommendations anticipated, outpatient EGD and colonoscopy April 13 Dizziness -Check EKG -Stop Phenergan -Check orthostatic vital signs Hypokalemia -Replace and recheck in a.m. Hypertension, intermittently elevated -Continue with Norvasc - follow blood pressure Iron deficiency anemia - follow CBC -outpatient ED and Colon Resolved: SHAI Chronic: Dyslipidemia Seizure disorder Coronary artery disease DVT prophylaxis: Heparin Discussed with: Patient, nursing Anticipated discharge: [address]: home A total of 25 minutes was spent on the care of this complex patient more than 50 % of the time was spent in counseling and care coordination.
[2018-03-09] MEDS: CITALOPRAM HYDROBROMIDE 20 MG TAB PO SCH (20:32)
[2018-03-09] MEDS: CLOPIDOGREL 75 MG TAB PO SCH (20:32)
[2018-03-09] MEDS: ATORVASTATIN 10 MG TAB PO SCH (20:32)
[2018-03-10] MEDS: ACETAMINOPHEN 500 MG TABLET PO PRN ×3 (00:33→20:03)
[2018-03-10] MEDS: ALPRAZOLAM 1 MG PO PRN ×3 (04:14→20:04)
[2018-03-10] MEDS: SODIUM CHLORIDE 0.9% 1,000 ML IV SCH ×2 (04:14→05:40)
[2018-03-10 04:38] LABS: Glucose,Whole Blood 113 mg/dL (75-99)
[2018-03-10 05:06] LABS: HCT 36.4 % (34.0-46.0); HGB 12.8 gm/dL (11.4-16.0); MCH 32.1 pg (25.0-35.0); MCHC 35.1 g/dL (31.0-37.0); MCV 91.6 fL (80.0-100.0); Mean Platelet Volume 5.9; Platelet Count 338 k/uL (150-450); RBC 3.97 m/uL (3.80-5.40); WBC 7.9 k/uL (3.8-10.6)
[2018-03-10 05:15] LABS: Anion Gap 11 mmol/L; Blood Urea Nitrogen 6 mg/dL (7-17); Calcium 8.8 mg/dL (8.4-10.2); Carbon Dioxide 19 mmol/L (22-30); Chloride 109 mmol/L (98-107); Glucose 100 mg/dL (74-99); Potassium 3.3 mmol/L (3.5-5.1); Sodium 139 mmol/L (137-145)
[2018-03-10] MEDS ORDERED: POTASSIUM CHLORIDE ER 20 MEQ TAB.ER PO STA (06:58)
--- NOTE | 2018-03-10 07:10 | P.PN ---
Progress Note - Text Progress Note Date: 03/10/18 I was called by RN to evaluate patient for possible seizures patient claimed that her typical seizures are stuttering without any associated LOC or shaking in her extremities. she was completely fine earlier, she asked for some xanax and went to the bathroom to urinate, when she got back, she felt off balance , and started stuttering. she denies any history of stroke. patient currently having stuttering in her speech and hard to understand. on physical exam her BP 154/85 and HR 90-100. oxygen saturation 97% on room air neurological exam, cranial nerves II-XII grossly intact, no focal neurological weakness or sensory deficits. cardiac normal S1 S2 tachycardia, no murmurs, radial pulses are intact and equal bilaterally Lungs clear to auscultation , no wheezes or rhonci extremities, no leg edema , no tenderness to palpation of the calf muscles bilaterally upon further evaluating the patient with the nursing staff, patient seems to express vague neurological symptoms that are inconsistent, and improves with distraction. plan check prolactin level, done within less than 20 min of the attack low suspicion for stroke at this time, as patient symptoms are inconsistent and improves with distraction continue with neurochecks seizure precautions replace K PO Labile hypertension continue with norvasc 10 mg daily this was signed out to the morning team. patient was seen at 0430 am , and then follow up visit at 6 am
[2018-03-10] MEDS: ONDANSETRON 4 MG/2 ML VIAL IVP PRN (08:56)
[2018-03-10] MEDS: LAMOTRIGINE 150 MG PO SCH ×2 (08:57→20:02)
[2018-03-10] MEDS: metroNIDAZOLE 500 MG TAB PO SCH ×3 (08:57→21:18)
[2018-03-10] MEDS: PANTOPRAZOLE 40 MG TABLET PO SCH (08:58)
[2018-03-10] MEDS: amLODIPine 10 MG TAB PO SCH (08:58)
[2018-03-10] MEDS: LEVOFLOXACIN 750 MG TAB PO SCH (12:48)
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
[2018-03-10] MEDS ORDERED: ALPRAZolam 0.25 MG TAB PO PRN (14:24)
--- NOTE | 2018-03-10 14:35 | P.PN ---
Subjective Progress Note Date: 03/10/18 Principal diagnosis: abdominal pain Patient is a 68 yo CF with a past medical history of asthma, hypertension, dyslipidemia, and seizure disorder who presented with complaint of nausea, vomiting, and diarrhea. She was found to have diverticulitis with sepsis and was started on antibiotics, IV fluids, and pain control. She has progressed well throughout her hospital stay. She has been seen by GI who recommended outpatient EGD and colonoscopy and this has been arranged for April 13. They also have recommended a low residue diet and following up a CBC in 5-7 days. Her diet was increased on 03/08/18. She still continued to have nausea and some loose stools. She had a possible seizure vs pseduoseizure on the night of 03/09. She reports increased stress. Porlactic level pending. Neuro evaluated the patient and recommends a lamictal level. Patient seen and examined at bedside. Eating better today. No complaints of nausea. Passing gas but less diarrhea- unable to tell me how often. We had a long discussion about her seizures it sounds like she has pseudoseizures that occur when she is over whelmed and that she had an episode of conversion disorder. Plan is for d/c in AM once lamicital level is available. Objective - Vital Signs Vital signs: Vital Signs Temp 98 F 03/09/18 22:36 Pulse 102 H 03/10/18 07:12 Resp 16 03/10/18 07:12 BP 148/67 03/10/18 07:12 Pulse Ox 95 03/10/18 07:12 Intake & Output 03/09/18 03/10/18 03/10/18 18:59 06:59 18:59 Intake Total 2130 975 Balance 2130 975 Weight 72.5 kg 74 kg Intake: IV 1200 675 Sodium Chloride 0.9% 1, 1200 675 000 ml @ 75 mls/hr IV . [id number] [facility] Rx#:[id number] Intake, IV Titration 250 Amount Levofloxacin 750Mg-D5w 150 Pmx 750 mg In Dextrose/ Water 1 150ml.bag @ 100 mls/hr IVPB Q24H [facility] Rx#: [id number] metroNIDAZOLE-NS PMX 500 100 mg In Saline 1 100ml.bag @ 100 mls/hr IVPB Q8HR [facility] Rx#:[id number] Oral 680 300 Other: Voiding Method Toilet Toilet Toilet # Voids 3 1 1 # Bowel Movements 1 1 - Exam General: non toxic, no distress, appears at stated age Derm: warm, dry Head: atraumatic, normocephalic, symmetric Eyes: EOMI, no lid lag, anicteric sclera Mouth: no lip lesion, mucus membranes moist Cardiovascular: S1S2 reg, no murmur, positive posterior tibial pulse bilateral, Lungs: decreased bs b/l bilateral, no rhonchi, no rales , no accessory muscle use Abdominal: soft, NTTP, no guarding, no appreciable organomegaly Ext: no gross muscle atrophy, no edema, no contractures Neuro: CN II-XI grossly intact, no focal neuro deficits Psych: Alert, oriented, anxious and nervous - Labs CBC & Chem 7: 03/10/18 04:51 03/10/18 04:51 Labs: Abnormal Lab Results - Last 24 Hours (Table) 03/09/18 03/10/18 03/10/18 Range/Units 14:41 04:35 04:51 Potassium 3.4 L 3.3 L (3.5-5.1) mmol/L Chloride 109 H (98-107) mmol/L Carbon Dioxide 19 L (22-30) mmol/L BUN 6 L (7-17) mg/dL Glucose 100 H (74-99) mg/dL POC Glucose (mg/dL) 113 H (75-99) mg/dL Microbiology - Last 24 Hours (Table) 03/05/18 04:44 Blood Culture - Preliminary Blood No Growth after 120 hours Assessment and Plan Assessment: Diverticulitis -Continue with Levaquin, Flagyl -IV fluids completed -low residual diet -pain control -antiemetics -GI recommendations anticipated, outpatient EGD and colonoscopy April 13 Acute stuttering event - seizure vs pseudoseizure - neuror ecs appreciated - await lamictal level and prolactic Hypokalemia -Replace and recheck in a.m. - check magnesium level Hypertension, intermittently elevated -Continue with Norvasc - follow blood pressure Iron deficiency anemia - follow CBC -outpatient ED and Colon Resolved: SHAI Dizziness, resolved sepsis Chronic: Dyslipidemia Seizure disorder Coronary artery disease DVT prophylaxis: Heparin Discussed with: Patient, nursing Anticipated discharge: [address]: home A total of 25 minutes was spent on the care of this complex patient more than 50 % of the time was spent in counseling and care coordination.
[2018-03-10] MEDS: ATORVASTATIN 10 MG TAB PO SCH (20:01)
[2018-03-10] MEDS: CLOPIDOGREL 75 MG TAB PO SCH (20:02)
[2018-03-10] MEDS: CITALOPRAM HYDROBROMIDE 20 MG TAB PO SCH (21:18)
[2018-03-11] MEDS: ACETAMINOPHEN 500 MG TABLET PO PRN (03:49)
[2018-03-11 06:02] VITALS: BP 151/72; PULSE 89; RESP 16; TEMP 97.6
[2018-03-11] MEDS: metroNIDAZOLE 500 MG TAB PO SCH (08:48)
[2018-03-11] MEDS: amLODIPine 10 MG TAB PO SCH (08:48)
[2018-03-11] MEDS: LAMOTRIGINE 150 MG PO SCH (08:49)
[2018-03-11] MEDS ORDERED: ALPRAZOLAM 1 MG PO PRN (08:57)
[2018-03-11] MEDS: PANTOPRAZOLE 40 MG TABLET PO SCH (08:57)
[2018-03-11] MEDS: LEVOFLOXACIN 750 MG TAB PO SCH (12:37)
--- NOTE | 2018-03-11 13:02 | P.DS ---
Providers Date of admission: 03/05/18 04:26 Expected date of discharge: 03/11/18 Attending physician: Lainey Mcghee MD Consults: 03/10/18 07:18 Consult Physician Routine Consulting Provider: Nicolette Fernandez Consult Reason/Comments: PSEUDOSEIZURE VS SEIZURE Do you want consulting provider notified?: Yes Primary care physician: Parker Prescott DO Hospital Course: Discharge Diagnosis: Diverticulitis with sepsis Acute seizure-like activity-Lamictal level and prolactin level pending at discharge, felt to be more likely pseudoseizure Hypokalemia Accelerated hypertension-patient initiated on Norvasc therapy Iron deficiency anemia Acute kidney injury Dizziness Hospital course: Patient is a 68 yo CF with a past medical history of asthma, hypertension, dyslipidemia, and seizure disorder who presented with complaint of nausea, vomiting, and diarrhea. She was found to have diverticulitis with sepsis and was started on antibiotics, IV fluids, and pain control. She has progressed well throughout her hospital stay. She was seen by GI who recommended outpatient EGD and colonoscopy and this has been arranged for April 13. They also have recommended a low residue diet and following up a CBC in 5-7 days. Her diet was increased on 03/08/18. She still continued to have nausea and some loose stools. She had a possible seizure vs pseduoseizure on the night of 03/09, monitored for 24 hours and no recurrent events. She reports increased stress. Porlactic level and Lamictal level pending. Neurology had evaluated the patient and patient had refused EEG stating that her primary neurologist told her she didn't need any more EEGs as they look normal but then caused abnormal activity after the EEG. She was tolerating a regular diet. Her pain had significantly decreased. She was having loose stools but not frequent stools. She was determined stable for discharge. She'll complete 2 additional days of Levaquin and Flagyl for her diverticulitis. I've asked her to follow-up with her primary care physician for elevated blood pressure during hospitalization. She had been started on Norvasc here. She will also follow-up with her neurologist. Patient was discharged home. Patient seen and examined at bedside. No additional episodes of stuttering. Tolerating her diet. Was able to get up and take a shower today. Having small amount of suprapubic tenderness still. She is having loose stools but only 1 per day. We have discussed the importance of following up with her primary care physician, neurologist, and the GI doctor. Vital signs reviewed and stable. General: non toxic, no distress, appears at stated age Derm: warm, dry Head: atraumatic, normocephalic, symmetric Eyes: EOMI, no lid lag, anicteric sclera Mouth: no lip lesion, mucus membranes moist Cardiovascular: S1S2 reg, no murmur, positive posterior tibial pulse bilateral, Lungs: CTA bilateral, no rhonchi, no rales , no accessory muscle use Abdominal: soft, nontender to palpation-patient states it's "internal pain"., no guarding, no appreciable organomegaly Ext: no gross muscle atrophy, no edema, no contractures Neuro: CN II-XI grossly intact, no focal neuro deficits Psych: Alert, oriented, anxious A total of 25 minutes of time were spent preparing this complex discharge summary . Pertinent Studies: CT abdomen and pelvis-inflammatory changes sigmoid colon consistent with diverticulitis Patient Condition at Discharge: Stable Plan - Discharge Summary Discharge Rx Participant: No New Discharge Prescriptions: New amLODIPine [Norvasc] 10 mg PO DAILY #30 tab Levofloxacin [Levaquin] 750 mg PO Q24H #2 tab metroNIDAZOLE [Flagyl] 500 mg PO TID #6 tab Continue lamoTRIgine [LaMICtal] 150 mg PO BID #20 tab Calcium Carbonate/Vitamin D3 [Calcium 600-Vit D3 400 Tablet] 1 tab PO DAILY Atorvastatin [Lipitor] 10 mg PO HS ALPRAZolam [Xanax] 0.25 mg PO TID PRN PRN Reason: Anxiety Pantoprazole Sodium [Protonix] 40 mg PO DAILY Citalopram Hydrobromide [CeleXA] 20 mg PO HS Clopidogrel Bisulfate [Plavix] 75 mg PO DAILY Discharge Medication List lamoTRIgine [LaMICtal] 150 mg PO BID #20 tab 01/13/14 [Rx] Calcium Carbonate/Vitamin D3 [Calcium 600-Vit D3 400 Tablet] 1 tab PO DAILY [History] ALPRAZolam [Xanax] 0.25 mg PO TID PRN 03/05/18 [History] Atorvastatin [Lipitor] 10 mg PO HS 03/05/18 [History] Citalopram Hydrobromide [CeleXA] 20 mg PO HS 03/05/18 [History] Clopidogrel Bisulfate [Plavix] 75 mg PO DAILY 03/05/18 [History] Pantoprazole Sodium [Protonix] 40 mg PO DAILY 03/05/18 [History] Levofloxacin [Levaquin] 750 mg PO Q24H #2 tab 03/11/18 [Rx] amLODIPine [Norvasc] 10 mg PO DAILY #30 tab 03/11/18 [Rx] metroNIDAZOLE [Flagyl] 500 mg PO TID #6 tab 03/11/18 [Rx] Follow up Appointment(s)/Referral(s): Praker Prescott DO [Primary Care Provider] - 1-2 days Patient Instructions/Handouts: Metronidazole (By mouth), Amlodipine (By mouth) , Levofloxacin (By mouth), Diverticulitis (DC), Acute Kidney Injury (DC), Anemia (DC) Activity/Diet/Wound Care/Special Instructions: Outpatient EGD colonoscopy Friday April 13, 2018 at [facility] with Dr. Clark office number [phone] Follow-up with your neurologist in 1-2 weeks. Low residue diet Activity as tolerated Over the counter tylenol or motrin for pain. Discharge Disposition: HOME SELF-CARE
--- NOTE | 2018-03-11 13:14 | P.PN ---
Subjective Progress Note Date: 03/11/18 This patient is a 68-year-old female being evaluated for history of seizure disorder and recent episode of possible seizure versus pseudoseizure. She is on Lamictal monotherapy for seizure prophylaxis. Her Lamictal blood level is pending this morning. She is being considered for possible discharge home in the next 24 hours. Neurologically there is been no further changes in her overall condition. She has had no further spells. We will continue close neurological follow-up for the patient during this admission. Patient is being considered for possible discharge home today. She has had no further spells or seizure-like events since yesterday. She may follow-up with her primary care physician soon after discharge. Objective - Vital Signs Vital signs: Vital Signs Temp 97.6 F 03/11/18 06:02 Pulse 89 03/11/18 06:02 Resp 16 03/11/18 06:02 BP 151/72 03/11/18 06:02 Pulse Ox 95 03/11/18 06:02 Intake & Output 03/10/18 03/11/18 03/11/18 18:59 06:59 18:59 Intake Total 600 900 390 Balance 600 900 390 Weight 73 kg Intake: IV 900 150 Sodium Chloride 0.9% 1, 900 150 000 ml @ 75 mls/hr IV . [id number] [facility] Rx#:[id number] Oral 600 240 Other: Voiding Method Toilet Toilet # Voids 2 2 - Exam Physical examination: PHYSICAL EXAMINATION: Patient is resting comfortably in bed. VITAL SIGNS: Blood pressure is [151/72]. Heart rate is [89]. Respiration is [16] . Temperature is [97.7]. HEENT: Head is atraumatic, neck is supple, there were no carotid bruits. CHEST: Lungs are clear to auscultation and percussion. CARDIAC: S1, S2 normal rate and rhythm. There is no murmur. ABDOMEN: Soft and nontender. Bowel sounds are present. EXTREMITIES: There is no pedal edema. Peripheral pulses are present. Neurological examination: Patient has a nonfocal neurological examination today. Patient has had no further spells since admission. - Labs CBC & Chem 7: 03/10/18 04:51 03/10/18 04:51 Labs: Microbiology - Last 24 Hours (Table) 03/05/18 04:44 Blood Culture - Final Blood No Growth after 144 hours Assessment and Plan (1) History of seizure disorder Status: Acute Code(s): Z86.69 - PERSONAL HISTORY OF DIS OF THE NERVOUS SYS AND SENSE ORGANS SNOMED Code(s): 069965334 (2) Closed head injury Status: Acute Code(s): S09.90XA - UNSPECIFIED INJURY OF HEAD, INITIAL ENCOUNTER SNOMED Code(s): 940281204417 (3) Anxiety disorder Status: Acute Code(s): F41.9 - ANXIETY DISORDER, UNSPECIFIED SNOMED Code(s) : 913193215 (4) Diverticulitis Status: Acute Code(s): K57.92 - DVTRCLI OF INTEST, PART UNSP, W/O PERF OR ABSCESS W/O BLEED SNOMED Code(s): 561790734 (5) Hypokalemia Status: Acute Code(s): E87.6 - HYPOKALEMIA SNOMED Code(s): 25532004 Plan: This patient is a 68-year-old female who was omitted to hospital for treatment of diverticulitis and sepsis. Apparently early this morning she was noted by nursing staff is becoming stuttering in her speech and altered mentation. She was able to talk through the entire event and there was concern as the patient states she was having a seizure. Patient does have history of underlying seizure disorder secondary to closed head injury. She is taking Lamictal monotherapy. A prolactin level was ordered and is pending. Patient apparently came out of the vent very easily and did not show any signs of tonic-clonic seizure activity associated with the event. She only had stuttering of her speech. She also did not have any bowel or bladder incontinence. She was able to be distracted by the nursing staff as well as the primary physician this morning and her symptoms did not remain consistent with seizure. We did recommend a EEG to be done this morning but the patient refused. We will obtain a stat Lamictal blood level and continue close monitoring. Her Lamictal blood level is still pending this morning. She has had no further spells. She is being considered for discharge home with follow-up with the primary care physician in terms of her Lamictal level. Her neurological examination otherwise is nonfocal today. Her overall prognosis at this time remains guarded.
== END 2018-03-11 12:49 | disposition home or self-care (01) | DRG 871 ==
LOC: EC 00:03 → 5MS5E 04:26
PROVIDERS: ADMIT Internal Medicine; ATTEND Internal Medicine
DX: A41.9 Sepsis, unspecified organism (principal); N17.0 Acute kidney failure with tubular necrosis; K57.32 Diverticulitis of large intestine without perforation or abscess without bleeding; F44.5 Conversion disorder with seizures or convulsions; R65.20 Severe sepsis without septic shock; E86.0 Dehydration; I10 Essential (primary) hypertension; E87.6 Hypokalemia; D50.9 Iron deficiency anemia, unspecified; I25.10 Atherosclerotic heart disease of native coronary artery without angina pectoris; J45.909 Unspecified asthma, uncomplicated; E78.5 Hyperlipidemia, unspecified; F41.0 Panic disorder [episodic paroxysmal anxiety]; F32.9 Major depressive disorder, single episode, unspecified; M54.9 Dorsalgia, unspecified; K21.9 Gastro-esophageal reflux disease without esophagitis; Z79.02 Long term (current) use of antithrombotics/antiplatelets; Z79.899 Other long term (current) drug therapy; Z90.710 Acquired absence of both cervix and uterus; Z90.49 Acquired absence of other specified parts of digestive tract; Z87.820 Personal history of traumatic brain injury; Z87.891 Personal history of nicotine dependence; Z87.81 Personal history of (healed) traumatic fracture; Z88.6 Allergy status to analgesic agent; Z80.0 Family history of malignant neoplasm of digestive organs; Z80.42 Family history of malignant neoplasm of prostate
CPT/HCPCS: 36415; 74176; 80048; 80053; 80175; 81001; 82150; 82272; 82728; 83540; 83550; 83605; 83690; 83735; 84132; 84146; 85025; 85027; 87040; 87324; 93005; 96361; 96365; 96367; 96375; 96376; 99285

== ENCOUNTER 2018-03-20 09:39 | Emergency (ER) | payer MEDICARE, OTHER ==
[2018-03-20 09:45] VITALS: RESP 18
[2018-03-20] MEDS ORDERED: ONDANSETRON 4 MG/2 ML VIAL IVP STA (09:57)
[2018-03-20] MEDS ORDERED: SODIUM CHLORIDE 0.9% 1,000 ML IV STA (09:57)
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
[2018-03-20 10:33] LABS: Basophils % (A) 0 %; Eosinophils # (A) 0.1 k/uL (0-0.7); Eosinophils % (A) 1 %; HCT 36.3 % (34.0-46.0); HGB 12.4 gm/dL (11.4-16.0); Lymphocytes # (A) 1.1 k/uL (1.0-4.8); Lymphocytes % (A) 8 %; MCH 31.4 pg (25.0-35.0); MCHC 34.1 g/dL (31.0-37.0); MCV 92.1 fL (80.0-100.0); Mean Platelet Volume 6.1; Monocytes # (A) 0.7 k/uL (0-1.0); Monocytes % (A) 5 %; Neutrophils # (A) 12.4 k/uL (1.3-7.7); Neutrophils % (A) 85 %; Platelet Count 377 k/uL (150-450); RBC 3.94 m/uL (3.80-5.40); RDW 13.5 % (11.5-15.5); WBC 14.5 k/uL (3.8-10.6)
[2018-03-20 10:46] LABS: Albumin 4.2 g/dL (3.5-5.0); Calcium 9.5 mg/dL (8.4-10.2); Potassium 3.3 mmol/L (3.5-5.1); Total Bilirubin 0.8 mg/dL (0.2-1.3); Total Protein 6.4 g/dL (6.3-8.2)
[2018-03-20] MEDS ORDERED: POTASSIUM CHLORIDE ER 20 MEQ TAB.ER PO STA (10:51)
[2018-03-20 11:39] LABS: Appearance,Urine Clear (Clear); Bilirubin,Urine Negative (Negative); Blood,Urine Moderate (Negative); Calcium Oxalate Crystals,Urine Rare /hpf; Color,Urine Light Yellow; Glucose,Urine (UA) Negative (Negative); Hyaline Casts,Urine 3 /lpf (0-2); Ketones,Urine Negative (Negative); Leukocyte Esterase,Urine Negative (Negative); Mucus,Urine Occasional /hpf; Nitrite,Urine Negative (Negative); PH, Urine 6.5 (5.0-8.0); Protein,Urine Trace (Negative); RBC,Urine 6 /hpf (0-5); Specific Gravity,Urine 1.007 (1.001-1.035); Urobilinogen,Urine <2.0 mg/dL (<2.0); WBC,Urine 1 /hpf (0-5)
--- NOTE | 2018-03-20 12:32 | CT ---
EXAMINATION TYPE: CT abdomen pelvis w con DATE OF EXAM: 03/20/2018 COMPARISON: 03/05/2018 INDICATION: Left lower quadrant pain with nausea, vomiting and diarrhea DLP: 1214 mGycm, Automated exposure control for dose reduction was used. CONTRAST: 100 mL of Isovue 300. Study performed with Oral Contrast TECHNIQUE: Axial images were obtained from above the diaphragm to the pubic rami in the axial plane a t 5 mm thick sections. Reconstructed images are reviewed on the computer in the coronal plane. FINDINGS: Limited CT sections are obtained the lung bases. The lung bases are clear. CT ABDOMEN: Liver: There is a 1.0 cm irregular hypodensity within the superior right lobe liver, series 2 image 1 4. This was not identified on noncontrast CT study. Underlying masses are not excluded. An additional hypodensity is along the posterior lateral right lobe liver margin measuring 1.8 cm. These areas are not evident on postcontrast images and may be related to hemangiomas. Liver is enlarged in craniocau paige dimension measuring 18.9 cm. Normal less than 15.5 cm. Spleen: Normal Pancreas: Atrophic Adrenal glands: The adrenal glands are normal. Gallbladder: Not visualized Kidneys: No masses are evident. No hydronephrosis is present. No cysts are present. Delayed images were obtained through the kidneys, which remain unremarkable. Aorta: Vascular calcification is within the aorta. Inferior vena cava: Normal. CT PELVIS: Mild diffuse wall thickening at the cecum may be present. Correlate for typhlitis. Inflammatory sy es adjacent are not evident. Some mild wall thickening of the ascending colon may also be present mery r the hepatic flexure. Minimal wall thickening of the descending colon is also present. There is more diffuse wall thickening through the sigmoid colon. Scattered diverticuli are present within the sigm oid colon without acute diverticulitis. There is thickening at the rectosigmoid junction. Study is pe rformed without oral contrast limiting the bowel evaluation. Appendix: Not identified Urinary bladder: Normal. Genitourinary structures: Uterus and ovaries are not identified. Osseous structures: No suspicious lytic or sclerotic lesions. IMPRESSIONS: 1. Mild colonic wall thickening discussed above. Findings can be related to colitis. This is greater through the sigmoid colon region. 2. Additional diverticulosis within the sigmoid colon without acute diverticulitis. 3. Couple of subtle hypodensities early phase contrast imaging through the liver discussed above. Hem angiomas are favored. Monitoring is recommended.
[2018-03-20] MEDS ORDERED: CIPROFLOXACIN HCL 500 MG TAB PO STA (13:05)
[2018-03-20] MEDS ORDERED: metroNIDAZOLE 500 MG TAB PO STA (13:06)
[2018-03-20 13:16] VITALS: BP 109/63; PULSE 111; TEMP 99.2
== END 2018-03-20 13:28 | disposition home or self-care (01) ==
LOC: EC 09:39
DX: K52.9 Noninfective gastroenteritis and colitis, unspecified (principal); R16.0 Hepatomegaly, not elsewhere classified; J45.909 Unspecified asthma, uncomplicated; K21.9 Gastro-esophageal reflux disease without esophagitis; E78.5 Hyperlipidemia, unspecified; I10 Essential (primary) hypertension; F32.9 Major depressive disorder, single episode, unspecified; F41.0 Panic disorder [episodic paroxysmal anxiety]; Z87.891 Personal history of nicotine dependence; Z79.51 Long term (current) use of inhaled steroids; Z79.01 Long term (current) use of anticoagulants; Z79.899 Other long term (current) drug therapy; Z88.6 Allergy status to analgesic agent; Z90.49 Acquired absence of other specified parts of digestive tract
CPT/HCPCS: 36415; 80053; 82150; 83605; 83690; 85025; 81001; 87040; 74177; 99284; 96374; 96361; J2405; Q9967

== ENCOUNTER → 2018-04-13 | Day surgery (SDC) | payer MEDICARE, OTHER ==
[2018-04-12 12:11] VITALS: BMI 24.4
[~2018-04-13] MED LIST: LACTATED RINGERS 1,000 ML IV SCH; LIDOCAINE 1% 20 ML VIAL (10MG/ML) FOR IV START INTRADERMA PRN; MIDAZOLAM 2 MG/2 ML VIAL IV PRN; ONDANSETRON 4 MG/2 ML VIAL IVP ONE; PROPOFOL 10 MG/ML 20 ML VIAL IV ONE
[2018-04-13 09:58] VITALS: RESP 16; TEMP 98.1
[2018-04-13 10:05] LABS: Glucose,Whole Blood 108 mg/dL (75-99)
--- NOTE | 2018-04-13 10:57 | P.PCN ---
Date of Procedure: 04/13/18 Procedure(s) Performed: Brief history: Patient is a pleasant 68-year-old white female, scheduled for an elective upper endoscopy as well as colonoscopy as a part of evaluation of deficiency anemia. She does complain of lower abdominal pain but denies any rectal bleeding or melena. Procedure performed: Esophagogastroduodenoscopy with biopsy Attempted Colonoscopy Preoperative diagnosis: Iron deficiency anemia Lower abdominal pain Anesthesia: MAC Procedure: After informed consent was obtained from the patient was brought into the endoscopy unit and IV sedation was administered by anesthesia under continuous monitoring. Initially upper endoscopy was done. The Olympus GF 160 video endoscope was inserted inserted into the mouth and esophagus intubated without any difficulty and was gradually advanced into the stomach and duodenum and carefully examined. The bulb and second part of the duodenum appeared normal. Biopsies were done from the duodenum to rule out celiac disease. The scope was then withdrawn into the stomach adequately insufflated with air and upon careful examination the antrum had gastritis and biopsies were done from this area. The body, cardia and fundus appeared normal. The scope was then withdrawn into the esophagus. The GE junction was located at 40 cm to the incisors. It appeared regular with no erythema erosions or ulcerations. Rest of the esophagus appeared normal. Patient tolerated the procedure well. At this time the patient continued to remain sedation. Initial digital rectal examination was normal. Olympus CF 160 video colonoscope was then inserted into the rectum and gradually advanced to the sigmoid colon and further advancement was not possible. The scope was removed and a pediatric colonoscope was then introduced into the rectum and advanced into the sigmoid colon despite multiple attempts I was not able to maneuver the scope further. There was acute angulation and sigmoid diverticulosis seen. After several attempts I terminated the procedure. The visual portions of the sigmoid colon and rectum appeared normal. Sigmoid diverticula seen. Retroflexion was performed in the rectum and no lesions were noted. Patient tolerated the procedure well. Impression: 1. Upper endoscopy revealed mild antral gastritis but no evidence of esophagitis or peptic ulcer disease 2. Attempted colonoscopy up to the sigmoid colon, and the scope could not be advanced further because of extensive sigmoid diverticulosis and acute angulation in this area. Recommendations: Findings of this examination were discussed with the patient as well as her family. She will be scheduled for a barium enema today to evaluate the rest of the colon. She'll be seen in office in 2-3 weeks.
[2018-04-13 11:47] VITALS: BP 127/57; PULSE 61
--- NOTE | 2018-04-13 15:09 | FL ---
EXAMINATION TYPE: FL barium enema DATE OF EXAM: 04/13/2018 COMPARISON: CT abdomen and pelvis March 20, 2018 HISTORY: Incomplete colonoscopy per order. History of anemia with recent colitis. TECHNIQUE: A double contrast barium enema study is performed. A total of 2 minutes 1 second of fluor oscopic time was utilized during attempted procedure. 27 spot images were obtained during attempted p rocedure. FINDINGS: Senior Construction [employer] view of the abdomen shows overall gas-filled prominence of small and large bowel loo ps consistent with history of recent colonoscopy. Enema study was done attempted. Upon filling the colon patient was having severe pain and wound reach ed the mid transverse colon level there was expulsion of the enema catheter and air-filled balloon. T here is significant leakage of contrast. At this point procedure had to be terminated. There was then inflated to obtain pictures of the opacified bowel. Patient could not tolerate holding air with continued expulsion. Visualized portion of sigmoid colon showed persistent diverticulosis w ithout obvious constricting mass to account for the abnormal colonoscopy earlier today. IMPRESSION: Suboptimal study as detailed above. Incomplete evaluation of colon. No constricting mass at area of clinical concern in the sigmoid colon with marked interval improvement in the previously visualized colitis.
== END ==
LOC: ORWHC2ENDO 08:33
PROVIDERS: ATTEND Internal Medicine Gastroenterology
DX: K29.50 Unspecified chronic gastritis without bleeding (principal); K57.30 Diverticulosis of large intestine without perforation or abscess without bleeding; Q43.8 Other specified congenital malformations of intestine; D50.9 Iron deficiency anemia, unspecified; Z79.02 Long term (current) use of antithrombotics/antiplatelets; Z79.899 Other long term (current) drug therapy; I10 Essential (primary) hypertension; E78.5 Hyperlipidemia, unspecified; J45.909 Unspecified asthma, uncomplicated; G40.909 Epilepsy, unspecified, not intractable, without status epilepticus; K21.9 Gastro-esophageal reflux disease without esophagitis; Z87.820 Personal history of traumatic brain injury; Z88.6 Allergy status to analgesic agent
CPT/HCPCS: 88305; 74270; 43239; 45330; J2250; J2405; J2704

== ENCOUNTER 2018-06-14 18:47 | Emergency (ER) | payer MEDICARE, OTHER ==
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
--- NOTE | 2018-06-14 20:49 | CT ---
EXAMINATION TYPE: CT brain suzanna wo con DATE OF EXAM: 06/14/2018 COMPARISON: CT brain 12/11/2015 HISTORY: Fall and seizure. CT DLP: 1109.7 mGycm Automated exposure control for dose reduction was used. TECHNIQUE: CT scan of the head and cervical spine are performed without contrast. FINDINGS: There is mild cerebral cortical atrophy. There is no mass effect nor midline shift. There is no sign of intracranial hemorrhage. The calvarium is intact. Cervical vertebra have fairly normal spacing and alignment. Posterior elements are intact. Skull base is intact. There is no evidence of a fracture. IMPRESSION: Mild atrophy. Otherwise negative CT scan of the brain. No change. Negative CT scan cervical spine.
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
--- NOTE | 2018-06-14 21:46 | XR ---
EXAMINATION TYPE: XR chest 1V DATE OF EXAM: 06/14/2018 COMPARISON: NONE HISTORY: Back pain TECHNIQUE: Single frontal view of the chest is obtained. FINDINGS: Heart and mediastinum are normal. Lungs are clear. Diaphragm is normal. Bony thorax is int act. There are no hilar masses. IMPRESSION: No active cardiopulmonary disease.
[2018-06-14] MEDS ORDERED: MORPHINE SULFATE 4 MG/ML SYRINGE IVP STA (22:09)
[2018-06-14] MEDS ORDERED: ONDANSETRON 4 MG/2 ML VIAL IVP STA (22:09)
[2018-06-14 22:15] VITALS: RESP 18
[2018-06-14] MEDS ORDERED: CYCLOBENZAPRINE 10MG STARTER 3 TAB BTL PO STA (22:15)
[2018-06-14] MEDS ORDERED: ACET/COD 300 MG/30 MG STARTER PACK 6 TAB BTL PO STA (22:15)
[2018-06-14 23:13] VITALS: BP 174/71; PULSE 78; TEMP 97.8
== END 2018-06-14 23:13 | disposition home or self-care (01) ==
LOC: EC 18:47
DX: S30.0XXA Contusion of lower back and pelvis, initial encounter (principal); G40.109 Localization-related (focal) (partial) symptomatic epilepsy and epileptic syndromes with simple partial seizures, not intractable, without status epilepticus; G89.29 Other chronic pain; M54.5 Low back pain; M41.87 Other forms of scoliosis, lumbosacral region; G31.9 Degenerative disease of nervous system, unspecified; J45.909 Unspecified asthma, uncomplicated; I10 Essential (primary) hypertension; K21.9 Gastro-esophageal reflux disease without esophagitis; F32.9 Major depressive disorder, single episode, unspecified; F41.0 Panic disorder [episodic paroxysmal anxiety]; Z87.891 Personal history of nicotine dependence; Z88.6 Allergy status to analgesic agent; Z79.02 Long term (current) use of antithrombotics/antiplatelets; Z79.899 Other long term (current) drug therapy; Z53.20 Procedure and treatment not carried out because of patient's decision for unspecified reasons; W18.09XA Striking against other object with subsequent fall, initial encounter; Y93.89 Activity, other specified; Y92.29 Other specified public building as the place of occurrence of the external cause
CPT/HCPCS: 70450; 71045; 72110; 72125; 99285

== ENCOUNTER 2018-06-16 16:08 | Observation (INO) | payer MEDICARE, OTHER ==
[2018-06-16] MEDS ORDERED: SODIUM CHLORIDE 0.9% 1,000 ML IV STA (16:27)
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
[2018-06-16 16:57] LABS: Glucose,Whole Blood 120 mg/dL (75-99)
[2018-06-16 17:03] LABS: Basophils % (A) 1 %; Eosinophils # (A) 0.2 k/uL (0-0.7); Eosinophils % (A) 4 %; HCT 36.5 % (34.0-46.0); HGB 12.5 gm/dL (11.4-16.0); Lymphocytes # (A) 1.8 k/uL (1.0-4.8); Lymphocytes % (A) 33 %; MCH 31.6 pg (25.0-35.0); MCHC 34.3 g/dL (31.0-37.0); MCV 92.1 fL (80.0-100.0); Monocytes # (A) 0.3 k/uL (0-1.0); Monocytes % (A) 6 %; Neutrophils % (A) 55 %; Platelet Count 270 k/uL (150-450); RBC 3.96 m/uL (3.80-5.40); RDW 13.7 % (11.5-15.5); WBC 5.4 k/uL (3.8-10.6)
[2018-06-16 17:12] LABS: ALT 32 U/L (9-52); AST 23 U/L (14-36); Albumin 4.1 g/dL (3.5-5.0); Alcohol <10 mg/dL; Alkaline Phosphatase 70 U/L (38-126); Anion Gap 8 mmol/L; Blood Urea Nitrogen 10 mg/dL (7-17); Calcium 9.5 mg/dL (8.4-10.2); Carbon Dioxide 22 mmol/L (22-30); Chloride 111 mmol/L (98-107); Glucose 103 mg/dL (74-99); Potassium 3.2 mmol/L (3.5-5.1); Sodium 141 mmol/L (137-145); Total Bilirubin 0.5 mg/dL (0.2-1.3); Total Protein 6.5 g/dL (6.3-8.2)
[2018-06-16 17:38] LABS: Appearance,Urine Clear (Clear); Bilirubin,Urine Negative (Negative); Blood,Urine Moderate (Negative); Color,Urine Yellow; Glucose,Urine (UA) Negative (Negative); Ketones,Urine Negative (Negative); Leukocyte Esterase,Urine Negative (Negative); Mucus,Urine Occasional /hpf; Nitrite,Urine Negative (Negative); Protein,Urine Trace (Negative); RBC,Urine 7 /hpf (0-5); Specific Gravity,Urine 1.011 (1.001-1.035); Squamous Epithelial Cell,Urine <1 /hpf (0-4); Urobilinogen,Urine <2.0 mg/dL (<2.0); WBC,Urine 1 /hpf (0-5)
[2018-06-16 17:45] LABS: Amphetamine Screen,Urine Not Detected (NotDetected); Barbiturate Screen,Urine Not Detected (NotDetected); Benzodiazepines Screen,Urine Detected (NotDetected); Cocaine Screen,Urine Not Detected (NotDetected); Methadone Screen, Urine Not Detected (NotDetected); Opiate Screen,Urine Not Detected (NotDetected); Oxycodone Screen, Urine Not Detected (NotDetected); Phencyclidine Screen,Urine Not Detected (NotDetected); Tricyclic Antidepressant,Urine Not Detected (NotDetected); Urn Cannabinoid Scrn Not Detected (NotDetected)
[2018-06-16] MEDS ORDERED: LORazepam 2 MG/ML INJ IV STA (18:00)
--- NOTE | 2018-06-16 19:23 | CT ---
EXAMINATION TYPE: CT angio head neck DATE OF EXAM: 06/16/2018 HISTORY: weakness, dizziness, seizure COMPARISON: None CT DLP: 323.6 mGycm. Automated Exposure Control for Dose Reduction was Utilized. TECHNIQUE: CTA scan of the neck is performed with IV Contrast, patient injected with 65 mL of Isovue 370, axial images are obtained, coronal and sagittal reformatted images are reviewed. Three-D recons tructed images are created on an independent workstation and reviewed. FINDINGS: The aortic arch is intact. There is no evidence of aneurysm or dissection. There are enlarged mediast inal lymph nodes. These measure up to 3 cm. There is normal branching pattern of the great vessels on the aortic arch. There is bilateral arteria l flow in the vertebral arteries which are fairly symmetric. There is arterial flow in the common int ernal and external carotid arteries bilaterally. There is no evidence of carotid or vertebral artery aneurysm or dissection. There is no evidence of stenosis. There is minimal calcification at the carot id artery bifurcations. There is arterial flow in the anterior middle and posterior cerebral arteries. There is arterial flow in the vertebrobasilar artery system. I see no evidence of aneurysm or neovascularity. There is no e vidence of intracranial arterial stenosis. There is normal contrast opacification of the venous sinus es. IMPRESSION: Negative CT angiogram of the neck and brain. Mediastinal adenopathy. Follow-up is recommended.
[2018-06-16] MEDS ORDERED: NALOXONE 0.4 MG/ML 1 ML VIAL IV PRN (20:28)
[2018-06-16] MEDS ORDERED: LORazepam 2 MG/ML INJ IV PRN (20:40)
[2018-06-16] MEDS ORDERED: ALPRAZolam 1 MG TAB PO PRN (22:13)
[2018-06-16] MEDS ORDERED: CLOPIDOGREL 75 MG TAB PO SCH (22:15)
[2018-06-16] MEDS ORDERED: lamoTRIgine 100 MG TAB PO SCH (22:15)
[2018-06-16] MEDS ORDERED: POTASSIUM CHLORIDE ER 20 MEQ TAB.ER PO STA (22:16)
[2018-06-16] MEDS ORDERED: ALBUTEROL NEBULIZED 2.5 MG/3 ML INHALATION PRN (22:29)
[2018-06-16] MEDS ORDERED: IPRATROPIUM-ALBUTEROL 3 ML NEB INHALATION PRN (22:29)
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
[2018-06-16] MEDS ORDERED: LAMOTRIGINE 150 MG PO SCH (23:00)
[2018-06-16] MEDS: LAMOTRIGINE 150 MG PO SCH (23:05)
[2018-06-17] MEDS ORDERED: PANTOPRAZOLE 40 MG TABLET PO SCH (07:30)
[2018-06-17 07:40] LABS: Anion Gap 9 mmol/L; Blood Urea Nitrogen 9 mg/dL (7-17); Carbon Dioxide 23 mmol/L (22-30); Chloride 110 mmol/L (98-107); Glucose 104 mg/dL (74-99); Potassium 3.4 mmol/L (3.5-5.1); Sodium 142 mmol/L (137-145)
[2018-06-17] MEDS ORDERED: ATORVASTATIN 40 MG TAB PO SCH (09:00)
[2018-06-17] MEDS: LAMOTRIGINE 150 MG PO SCH ×2 (09:39→20:37)
[2018-06-17] MEDS ORDERED: ALPRAZolam 0.25 MG TAB PO PRN (10:50)
[2018-06-17] MEDS ORDERED: ACETAMINOPHEN TAB 325 MG TAB PO PRN ×2 (10:50→13:05)
[2018-06-17] MEDS: ALPRAZolam 1 MG TAB PO PRN ×2 (14:09→20:58)
[2018-06-17] MEDS: ACETAMINOPHEN TAB 500 MG TAB PO PRN ×2 (14:10→20:40)
[2018-06-17] MEDS: PANTOPRAZOLE 40 MG TABLET PO SCH (14:10)
[2018-06-17] MEDS: amLODIPine 10 MG TAB PO SCH (14:14)
--- NOTE | 2018-06-17 14:44 | P.PN ---
Subjective Progress Note Date: 06/17/18 Principal diagnosis: Dizziness, Headache, brief confusion Patient was seen and examined. No acute events overnight. Patient states that she was here on after mechanical fall. Patient reports both of her feet getting caught and falling forward without any loss of consciousness. There was a report of possible seizure: The ambulance. She developed a headache which was bandlike with some dizziness and unstable gait in the ED at that time. Yesterday, she was talking on the phone patient reported a possible seizure- like episode. There was reports that she couldn't make any sense. Patient experienced a headache that was pressure-like and bandlike, couldn't focus on her thoughts and could not hear at that time. She denied any bladder or bowel incontinence. She endorses confusion after the event. 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 Left her with right-sided residual weakness which improved with physical therapy. Of note, patient has been treated for diverticulitis and C. diff infection this summer. Objective - Vital Signs Vital signs: Vital Signs Temp 98.4 F 06/17/18 07:00 Pulse 99 06/17/18 07:00 Resp 18 06/17/18 07:00 BP 182/81 06/17/18 07:00 Pulse Ox 94 L 06/17/18 07:00 Intake & Output 06/16/18 06/17/18 06/17/18 18:59 06:59 18:59 Intake Total 1000 0 Balance 1000 0 Weight 61.235 kg Intake: Amount of Fluid Infused ( 1000 ml) Intake, IV Titration 0 Amount Sodium Chloride 0.9% 1, 0 000 ml @ 999 mls/hr IV . Q1H1M STA Rx#:[id number] Other: # Voids 1 - Exam General: [non toxic], [no distress], [appears at stated age] Derm: [warm], [dry] Head: [atraumatic], [normocephalic], [symmetric] Eyes: [EOMI], [no lid lag], [anicteric sclera] Mouth: [no lip lesion], [mucus membranes moist] Cardiovascular: [S1S2 reg], [no murmur], [positive DP pulse bilateral] Lungs: [CTA bilateral], [no rhonchi, no rales] , [no accessory muscle use] Abdominal: [soft], [ nontender to palpation], [no guarding], [no appreciable organomegaly] Ext: [no gross muscle atrophy], [no edema], [no contractures] Neuro: [ CN II-XI grossly intact], [no focal neuro deficits] Psych: [Alert], [oriented], [appropriate affect] - Labs CBC & Chem 7: 06/16/18 16:45 06/17/18 06:55 Labs: Abnormal Lab Results - Last 24 Hours (Table) 06/16/18 06/16/18 06/16/18 Range/Units 16:45 16:49 17:00 Potassium 3.2 L (3.5-5.1) mmol/L Chloride 111 H (98-107) mmol/L Glucose 103 H (74-99) mg/dL POC Glucose (mg/dL) 120 H (75-99) mg/dL Urine Protein Trace H (Negative) Urine Blood Moderate H (Negative) Urine RBC 7 H (0-5) /hpf Urine Mucus Occasional H (None) /hpf U Benzodiazepines Scrn Detected H (NotDetected) 06/17/18 Range/Units 06:55 Potassium 3.4 L (3.5-5.1) mmol/L Chloride 110 H (98-107) mmol/L Glucose 104 H (74-99) mg/dL POC Glucose (mg/dL) (75-99) mg/dL Urine Protein (Negative) Urine Blood (Negative) Urine RBC (0-5) /hpf Urine Mucus (None) /hpf U Benzodiazepines Scrn (NotDetected) Assessment and Plan Assessment: Assessment and Plan 1. Dizziness and Confusion: Resolved now. Patient is AOx3. Possible 2/2 seizure , concerns for CVA given previous history. CT head and neck shows enlarged lymph nodes, diminutive proximal L. SHELIA but no definite stenosis. Continue Plavix 75 mg PO QD, Lipitor 80 mg PO QHS. Ativan 1 mg IV PRN for seizures. Seizure and Fall precautions. Neurochecks. FU MRI brain, EEG, PT/OT, Neurology consult, Orthostats, Echocardiogram. 2. Seizure disorder: Continue Lamotrigine 150 mg PO BID. Seizure and Fall precautions. Neurochecks. FU EEG, Neurology consult. 3. Hypertension: Continue Amlodipine 10 mg PO QD. 4. Depression and Anxiety: Continue Celexa 20 mg PO QHS and Xanax 0.25 mg PO QID PRN. 5. Asthma: Stable. DuoNeb QID PRN, Albuterol neb Q4H PRN. 6. DVT/GI Prophylaxis: Protonix 40 mg PO QD. Lovenox 40 mg SUBCUT QD. Patient is being evaluated for possible seizure, rule out CVA. Neurology on consult. Workup in progress.
[2018-06-17] MEDS ORDERED: POTASSIUM CHLORIDE ER 20 MEQ TAB.ER PO STA (14:45)
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
[2018-06-17] MEDS: CLOPIDOGREL 75 MG TAB PO SCH (20:37)
[2018-06-17] MEDS: CITALOPRAM HYDROBROMIDE 20 MG TAB PO SCH (20:37)
[2018-06-17 22:46] LABS: Cholesterol 118 mg/dL (<200); HDL Cholesterol 39 mg/dL (40-60); LDL Cholesterol,Calculated 48 mg/dL (0-99); Triglycerides 154 mg/dL (<150)
[2018-06-18] MEDS: amLODIPine 10 MG TAB PO SCH (05:00)
[2018-06-18] MEDS: ALPRAZolam 1 MG TAB PO PRN ×3 (06:29→23:30)
[2018-06-18] MEDS: ACETAMINOPHEN TAB 500 MG TAB PO PRN ×3 (06:29→23:19)
[2018-06-18] MEDS: LAMOTRIGINE 150 MG PO SCH ×2 (08:00→19:48)
[2018-06-18] MEDS: ENOXAPARIN 40 MG/0.4 ML SYRINGE SQ SCH (08:00)
[2018-06-18] MEDS: ATORVASTATIN 10 MG TAB PO SCH (08:00)
--- NOTE | 2018-06-18 10:20 | ECHOF ---
Referral Reason:CVA workup MEASUREMENTS -------- HEIGHT: 160.0 cm WEIGHT: 60.8 kg BP: 161/65 IVSd: 0.9 cm (0.6 - 1.1) LVIDd: 3.5 cm (3.9 - 5.3) LVPWd: 1.2 cm (0.6 - 1.1) IVSs: 1.3 cm LVIDs: 2.0 cm LVPWs: 1.6 cm MV E Cecilio: 0.77 m/s MV DecT: 226 ms MV A Cecilio: 0.88 m/s MV E/A Ratio: 0.87 FINDINGS -------- Sinus rhythm. This was a technically good study. The left ventricular size is normal. Left ventricular wall thickness is normal. Overall left vent ricular systolic function is normal with, an EF between 55 - 60 %. The right ventricle is normal in size and function. The left atrium is normal in size. The right atrium is normal in size. The aortic valve is trileaflet and appears structurally normal. There is trace mitral regurgitation. Trace tricuspid regurgitation present. The right ventricular systolic pressure, as measured by Dopp ler, is {RVSP}. Pulmonic valve appears structurally normal. The aortic root, ascending aorta and aortic arch are normal. Normal inferior vena cava with normal inspiratory collapse consistent with estimated right atrial pre ssure of 5 mmHg. The pericardium is normal. CONCLUSIONS -------- 1. Sinus rhythm. 2. This was a technically good study. 3. The left ventricular size is normal. 4. Left ventricular wall thickness is normal. 5. Overall left ventricular systolic function is normal with, an EF between 55 - 60 %. 6. The right ventricle is normal in size and function. 7. The left atrium is normal in size. 8. The right atrium is normal in size. 9. The aortic valve is trileaflet and appears structurally normal. 10. There is trace mitral regurgitation. 11. Trace tricuspid regurgitation present. 12. The right ventricular systolic pressure, as measured by Doppler, is {RVSP}. 13. Pulmonic valve appears structurally normal. 14. The aortic root, ascending aorta and aortic arch are normal. 15. Normal inferior vena cava with normal inspiratory collapse consistent with estimated right atrial pressure of 5 mmHg. 16. The pericardium is normal. SHREDDED FILLER CUTTER OPERATOR: Malorie Wang RDCS
[2018-06-18] MEDS ORDERED: LORazepam 1 MG TAB PO STA (11:29)
[2018-06-18] MEDS ORDERED: LORazepam 2 MG/ML INJ IV STA (11:51)
--- NOTE | 2018-06-18 15:57 | MR ---
MR brain without contrast HISTORY: TIA Multiplanar multisequence imaging through the brain and correlated to prior CT brain 06/14/2018 There is no restricted diffusion. There is no hemorrhage or hydrocephalus. Corpus callosum, pituitary , cervical medullary junction, cerebellopontine angles are normal. Choroidal fissure cyst is present on the right. Orbits show symmetric appearance. Cortical atrophy is likely age-related. There are sca ttered and confluent hyperintensities on inversion recovery T2-weighted sequences within the perivent ricular, subcortical, pericallosal white matter. Some inflammatory change present in the mastoid air cells on the right. There are normal vascular flow voids. IMPRESSION: Nonspecific white matter demyelination may be due to chronic small vessel ischemia, there is age-related atrophy. Mild inflammatory changes mastoid air cells on the right.
--- NOTE | 2018-06-18 16:00 | P.PN ---
Subjective Progress Note Date: 06/18/18 The patient is a 68 yo F with the PMH of HTN, TIA, HLD, Asthma, GERD, and Seizure d/o who presented to the ED due to a brief episode of confusion and aphasia. The patient was talking to her daughter on the phone when she suddenly became confusion and non-verbal, with all symptoms resolving upon arrival of EMS though patient not being able to recall the details of the event. No reported urinary or bowel incontinence, abnormal movements, trauma, dizziness, headache, visual changes, weakness, numbness, facial droop, palpitations, chest pain, or SOB. The patient did have an episode of fall on 06/15/18 with no reported head injury and was seen in the ED and discharged. The patient reported on admission that since the fall, she has had multiple episodes of dizziness associated with head positioning that resolve spontaneously with time though she continues to feel unsteady. In the ED, CT angiogram of head and neck was negative for bleeding or dissection. She was admitted for further evaluation of possible seizure episode. Neurology was consulted and recommended MRI brain. Patient refused EEG stating that her out of town neurologist recommends against them since they cause her to have seizures. On 06/18/18, she reports that the dizziness has somewhat improved though she continues to need assistance with ambulation. She otherwise denied further episodes of confusion, seizures, headache, nausea, vomiting, weakness, numbness, tingling, visual changes, or tinnitus. Objective - Vital Signs Vital signs: Vital Signs Temp 97.5 F L 06/18/18 11:42 Pulse 88 06/18/18 11:42 Resp 20 06/18/18 11:42 BP 151/72 06/18/18 11:42 Pulse Ox 97 06/18/18 11:42 Intake & Output 06/17/18 06/18/18 06/18/18 18:59 06:59 18:59 Intake Total 0 200 360 Output Total 200 Balance 0 200 160 Weight 61 kg Intake: Intake, IV Titration 0 Amount Sodium Chloride 0.9% 1, 0 000 ml @ 999 mls/hr IV . Q1H1M STA Rx#:[id number] Oral 200 360 Output: Urine 200 Other: Voiding Method Toilet # Voids 1 1 - Exam General: Non-toxic, in no acute distress HEENT: NC/AT, anicteric sclerae, moist conjunctiva, no lid-lag, PERRLA, oropharynx clear, no erythema, exudates Cardiovascular: S1/S2 wnl, no murmurs, rubs, or gallops Lungs: Clear to auscultation, normal respiratory effort, no accessory muscle use Abdominal: Soft, nontender, non-distended, no guarding, rebound, or rigidity, normoactive bowel sounds Skin: Warm, dry Extremities: No edema or contractures Psychiatric: Alert and oriented to person, place and time, appropriate affect, Intact judgment Neuro: CN II-XII grossly intact, no focal motor deficits - Labs CBC & Chem 7: 06/16/18 16:45 06/17/18 06:55 Labs: Abnormal Lab Results - Last 24 Hours (Table) 06/17/18 Range/Units 06:55 Triglycerides 154 H (<150) mg/dL HDL Cholesterol 39 L (40-60) mg/dL Assessment and Plan Plan: Confusion, dizziness, resolved -- secondary to seizures (Hx of absence seizures ) vs CVA (hx of prior CVAs) - Neurology recs appreciated - C/w Plavix 75 mg qd, Lipitor 80 mg qhs - F/u Brain MRI, PT/OT recs Hypokalemia - Will replace HTN - C/w Norvasc 10 mg qd Depression/anxiety - C/w Xanax and Celexa Asthma - C/w Duonebs prn DVT//GI prophylaxis - Lovenox - No indication for GI prophylaxis Discussed with: Patient Anticipated discharge date: 06/19/[address]: Home A total of 40 minutes was spent on the care of this complex patient more than 50 % of the time was spent in counseling and care coordination.
[2018-06-18] MEDS ORDERED: ALPRAZolam 0.25 MG TAB PO PRN ×2 (16:51→22:40)
--- NOTE | 2018-06-18 19:04 | P.PN ---
Subjective Progress Note Date: 06/18/18 Patient is a 68-year-old female who is being followed by the neurology service for dizziness and rule out seizure. Patient had a closed head injury about 10 years ago and has been on seizure medicine since. Patient states she had an episode of sudden aphasia while on the telephone. Symptoms lasted about 5-10 minutes. Patient states she has been lightheaded and dizzy ever since. CTA was negative for aneurysm or dissection. No evidence of intracranial arterial stenosis. MRI showed chronic small vessel ischemia in no acute process. Echo showed EF between 55 and 60%. No seizure activity since admission. Patient reports ongoing dizziness. At the time of my evaluation, patient is resting comfortably in bed and appears to be in no acute distress. Objective - Vital Signs Vital signs: Vital Signs Temp 97.1 F L 06/18/18 15:44 Pulse 88 06/18/18 15:44 Resp 18 06/18/18 15:44 BP 146/67 06/18/18 15:44 Pulse Ox 99 06/18/18 15:44 Intake & Output 06/17/18 06/18/18 06/18/18 18:59 06:59 18:59 Intake Total 0 200 600 Output Total 200 Balance 0 200 400 Weight 61 kg Intake: Intake, IV Titration 0 Amount Sodium Chloride 0.9% 1, 0 000 ml @ 999 mls/hr IV . Q1H1M STA Rx#:[id number] Oral 200 600 Output: Urine 200 Other: Voiding Method Toilet # Voids 1 1 # Bowel Movements 1 - Exam PHYSICAL EXAM: GENERAL APPEARANCE: Patient is a well-developed, female who appears to be in no acute distress. HEENT: Normocephalic, atraumatic, no facial asymmetry is seen. Neck is supple with no masses felt. CARDIOVASCULAR: Regular rate and rhythm. ABDOMEN: Nontender, nondistended. EXTREMITIES: Show no edema or clubbing. NEUROLOGICAL EXAM: She is awake, alert, and oriented 3. Speech and language are normal. Strength is full in all 4 extremities. Sensory exam to light touch is normal in all 4 extremities. No facial asymmetry seen on cranial nerve testing. No tremors or seizure-like activity noted. - Labs CBC & Chem 7: 06/16/18 16:45 06/17/18 06:55 Labs: Abnormal Lab Results - Last 24 Hours (Table) 10/28/18 Range/Units 06:55 Triglycerides 154 H (<150) mg/dL HDL Cholesterol 39 L (40-60) mg/dL Assessment and Plan Plan: Impression: 1. Dizziness, comes and goes 2. Confusion, resolved 3. Seizure disorder 4. Hypertension 5. Anxiety disorder 6. Asthma 7. Recent fall 8. History of closed head injury Recommendation: It does appear patient likely had a transient ischemic attack with a transient episode of aphasia and confusion. CTA was unremarkable. Patient is on Plavix in the home setting for history of possible TIA/CVA. She is on statin therapy. Patient has a seizure disorder and takes Lamictal 150 mg twice daily in the home setting. I recommend continuing this dose at this time. I doubt this was seizure activity. Patient is refusing EEG stating her out-of-town neurologist recommends she no longer undergo EEGs as they cause her to have seizures. MRI of the brain showed no acute process. Her fasting lipid panel showed elevated triglycerides and low HDL of 39. Her serum homocysteine level was within normal limits. I recommend physical therapy to evaluate and treat. Continue neurological checks. Patient is cleared from a neurological standpoint for discharge. Further neurological testing for dizziness can be done as an outpatient. Continue meclizine. Patient is refusing EEG so she can follow up with her neurologist on discharge. I will continue to follow with you on an as-needed basis feel free to call with any questions or concerns. I performed an examination of the patient and discussed the management with the CHILD CUSTODY EVALUATOR. I have reviewed the CHILD CUSTODY EVALUATOR notes and agree with the findings and plan of care.
[2018-06-18] MEDS: CLOPIDOGREL 75 MG TAB PO SCH (19:49)
[2018-06-18] MEDS: CITALOPRAM HYDROBROMIDE 20 MG TAB PO SCH (19:49)
[2018-06-19] MEDS: PANTOPRAZOLE 40 MG TABLET PO SCH (05:14)
[2018-06-19] MEDS: ACETAMINOPHEN TAB 500 MG TAB PO PRN ×4 (05:14→20:23)
[2018-06-19 07:10] LABS: Calcium 9.3 mg/dL (8.4-10.2); Potassium 3.7 mmol/L (3.5-5.1)
[2018-06-19] MEDS: ALPRAZolam 1 MG TAB PO PRN ×3 (08:02→20:44)
[2018-06-19] MEDS: ENOXAPARIN 40 MG/0.4 ML SYRINGE SQ SCH (08:02)
[2018-06-19] MEDS: amLODIPine 10 MG TAB PO SCH (08:03)
[2018-06-19] MEDS: ATORVASTATIN 10 MG TAB PO SCH (08:03)
[2018-06-19] MEDS: LAMOTRIGINE 150 MG PO SCH ×2 (08:04→20:23)
--- NOTE | 2018-06-19 16:29 | P.PN ---
Subjective Progress Note Date: 06/19/18 The patient is a 68 yo F with the PMH of HTN, TIA, HLD, Asthma, GERD, and Seizure d/o who presented to the ED due to a brief episode of confusion and aphasia. The patient was talking to her daughter on the phone when she suddenly became confusion and non-verbal, with all symptoms resolving upon arrival of EMS though patient not being able to recall the details of the event. No reported urinary or bowel incontinence, abnormal movements, trauma, dizziness, headache, visual changes, weakness, numbness, facial droop, palpitations, chest pain, or SOB. The patient did have an episode of fall on 06/15/18 with no reported head injury and was seen in the ED and discharged. The patient reported on admission that since the fall, she has had multiple episodes of dizziness associated with head positioning that resolve spontaneously with time though she continues to feel unsteady. In the ED, CT angiogram of head and neck was negative for bleeding or dissection. She was admitted for further evaluation of possible seizure episode. Neurology was consulted and recommended MRI brain. Patient refused EEG stating that her out of town neurologist recommends against them since they cause her to have seizures. On 06/18/18, she reports that the dizziness has somewhat improved though she continues to need assistance with ambulation. Patient seen and examined at the bedside on . The dizziness continues to improve though she is still ambulating with a walker. She otherwise denied headaches, chest pain, SOB, palpitations, nausea, vomiting, fever, or chills. Pt agreeable with plan of rehab facility. Objective - Vital Signs Vital signs: Vital Signs Temp 98.0 F 06/19/18 16:00 Pulse 87 06/19/18 16:00 Resp 18 06/19/18 16:00 BP 132/98 06/19/18 16:00 Pulse Ox 98 06/19/18 16:00 Intake & Output 06/18/18 06/19/18 06/19/18 18:59 06:59 18:59 Intake Total 600 Output Total 200 Balance 400 Weight 60.6 kg Intake: Oral 600 Output: Urine 200 Other: Voiding Method Toilet Toilet Toilet # Voids 1 1 1 # Bowel Movements 1 1 - Exam General: Non-toxic, in no acute distress HEENT: NC/AT, anicteric sclerae, moist conjunctiva, no lid-lag, PERRLA, oropharynx clear, no erythema, exudates Cardiovascular: S1/S2 wnl, no murmurs, rubs, or gallops Lungs: Clear to auscultation, normal respiratory effort, no accessory muscle use Abdominal: Soft, nontender, non-distended, no guarding, rebound, or rigidity, normoactive bowel sounds Skin: Warm, dry Extremities: No edema or contractures Psychiatric: Alert and oriented to person, place and time, appropriate affect, Intact judgment Neuro: CN II-XII grossly intact, no focal motor deficits - Labs CBC & Chem 7: 06/16/18 16:45 06/19/18 05:56 Labs: Abnormal Lab Results - Last 24 Hours (Table) 06/19/18 Range/Units 05:56 Glucose 105 H (74-99) mg/dL Assessment and Plan Plan: Confusion resolved, likely secondary to TIA, dizziness improved - Neurology recs appreciated. Further dizziness w/u to be done as outpatient - MRI brain w/ no acute process - Planned for transfer to Rehab facility - C/w Plavix 75 mg qd, Lipitor 80 mg qhs Hypokalemia - Resolved HTN - C/w Norvasc 10 mg qd Depression/anxiety - C/w Xanax and Celexa Asthma - C/w Duonebs prn DVT//GI prophylaxis - Lovenox - Protonix Discussed with: Patient Anticipated discharge date: 06/20/[address]: Rehab facility A total of 40 minutes was spent on the care of this complex patient more than 50 % of the time was spent in counseling and care coordination.
[2018-06-19] MEDS: CLOPIDOGREL 75 MG TAB PO SCH (20:23)
[2018-06-19] MEDS: CITALOPRAM HYDROBROMIDE 20 MG TAB PO SCH (21:29)
[2018-06-20] MEDS: ACETAMINOPHEN TAB 500 MG TAB PO PRN ×4 (04:27→23:37)
[2018-06-20] MEDS: ALPRAZolam 1 MG TAB PO PRN ×4 (04:28→23:36)
[2018-06-20] MEDS: LAMOTRIGINE 150 MG PO SCH ×2 (08:36→21:27)
[2018-06-20] MEDS: ATORVASTATIN 10 MG TAB PO SCH (08:37)
[2018-06-20] MEDS: PANTOPRAZOLE 40 MG TABLET PO SCH (08:37)
[2018-06-20] MEDS: amLODIPine 10 MG TAB PO SCH (09:40)
[2018-06-20] MEDS: ENOXAPARIN 40 MG/0.4 ML SYRINGE SQ SCH (09:40)
--- NOTE | 2018-06-20 14:42 | P.PN ---
Subjective Progress Note Date: 06/20/18 The patient is a 68 yo F with the PMH of HTN, TIA, HLD, Asthma, GERD, and Seizure d/o who presented to the ED due to a brief episode of confusion and aphasia. The patient was talking to her daughter on the phone when she suddenly became confusion and non-verbal, with all symptoms resolving upon arrival of EMS though patient not being able to recall the details of the event. No reported urinary or bowel incontinence, abnormal movements, trauma, dizziness, headache, visual changes, weakness, numbness, facial droop, palpitations, chest pain, or SOB. The patient did have an episode of fall on 06/15/18 with no reported head injury and was seen in the ED and discharged. The patient reported on admission that since the fall, she has had multiple episodes of dizziness associated with head positioning that resolve spontaneously with time though she continues to feel unsteady. In the ED, CT angiogram of head and neck was negative for bleeding or dissection. She was admitted for further evaluation of possible seizure episode. Neurology was consulted and recommended MRI brain. Patient refused EEG stating that her out of town neurologist recommends against them since they cause her to have seizures. On 06/18/18, she reports that the dizziness has somewhat improved though she continues to need assistance with ambulation. On 06/20/18, the patient notes that her dizziness continues to improve gradually though she is ambulating with a walker. Otherwise denied headache, weakness, numbness, visual changes, fever, or chills. Objective - Vital Signs Vital signs: Vital Signs Temp 97.7 F 06/20/18 12:11 Pulse 86 06/20/18 12:11 Resp 12 06/20/18 12:11 BP 124/55 06/20/18 12:11 Pulse Ox 96 06/20/18 12:11 Intake & Output 06/19/18 06/20/18 06/20/18 18:59 06:59 18:59 Intake Total 250 Balance 250 Weight 60.2 kg Intake: IV 10 0.9 10 Oral 240 Other: Voiding Method Toilet Toilet # Voids 1 1 # Bowel Movements 1 - Exam General: Non-toxic, in no acute distress HEENT: NC/AT, anicteric sclerae, moist conjunctiva, no lid-lag, PERRLA, oropharynx clear, no erythema, exudates Cardiovascular: S1/S2 wnl, no murmurs, rubs, or gallops Lungs: Clear to auscultation, normal respiratory effort, no accessory muscle use Abdominal: Soft, nontender, non-distended, no guarding, rebound, or rigidity, normoactive bowel sounds Skin: Warm, dry Extremities: No edema or contractures Psychiatric: Alert and oriented to person, place and time, appropriate affect, Intact judgment Neuro: CN II-XII grossly intact, no focal motor deficits, speech normal, strength 5/5 throughout, sensation grossly intact - Labs CBC & Chem 7: 06/16/18 16:45 06/19/18 05:56 Assessment and Plan Plan: Confusion resolved, likely secondary to TIA, dizziness improved - Neurology recs appreciated. Further dizziness w/u to be done as outpatient - MRI brain w/ no acute process - Planned for transfer to Rehab facility, awaiting authorization - C/w Plavix 75 mg qd, Lipitor 80 mg qhs Hypokalemia - Resolved HTN - C/w Norvasc 10 mg qd Depression/anxiety - C/w Xanax and Celexa Asthma - C/w Duonebs prn DVT//GI prophylaxis - Lovenox - Protonix Discussed with: Patient Anticipated discharge date: 06/21/[address]: Rehab facility A total of 40 minutes was spent on the care of this complex patient more than 50 % of the time was spent in counseling and care coordination.
[2018-06-20] MEDS: CLOPIDOGREL 75 MG TAB PO SCH (21:28)
[2018-06-20] MEDS: CITALOPRAM HYDROBROMIDE 20 MG TAB PO SCH (22:24)
[2018-06-21] MEDS: ACETAMINOPHEN TAB 500 MG TAB PO PRN ×2 (05:43→12:31)
[2018-06-21] MEDS: ALPRAZolam 1 MG TAB PO PRN ×2 (05:47→12:31)
[2018-06-21] MEDS: amLODIPine 10 MG TAB PO SCH (08:42)
[2018-06-21] MEDS: ENOXAPARIN 40 MG/0.4 ML SYRINGE SQ SCH (08:42)
[2018-06-21] MEDS: LAMOTRIGINE 150 MG PO SCH (08:43)
[2018-06-21] MEDS: PANTOPRAZOLE 40 MG TABLET PO SCH (08:44)
[2018-06-21] MEDS: ATORVASTATIN 10 MG TAB PO SCH (08:45)
[2018-06-21] MEDS ORDERED: ATORVASTATIN 10 MG TAB PO SCH ×2 (09:00)
[2018-06-21 12:45] VITALS: BP 115/58; PULSE 89; RESP 14; TEMP 97.7
--- NOTE | 2018-06-21 14:47 | P.DS ---
Providers Date of admission: 06/16/18 20:37 Expected date of discharge: 06/21/18 Attending physician: Lainey Mcghee MD Consults: 06/17/18 14:38 Consult Physician Urgent Consulting Provider: Bhaskar Granado Consult Reason/Comments: Dizziness rule out stroke Do you want consulting provider notified?: Yes Primary care physician: Parker Prescott DO Hospital Course: The patient is a 68 yo F with the PMH of HTN, TIA, HLD, Asthma, GERD, and Seizure d/o who presented to the ED due to a brief episode of confusion and aphasia. The patient was talking to her daughter on the phone when she suddenly became confused and non-verbal, with all symptoms resolving upon arrival of EMS though patient not being able to recall the details of the event. No reported urinary or bowel incontinence, abnormal movements, trauma, dizziness, headache, visual changes, weakness, numbness, facial droop, palpitations, chest pain, or SOB. The patient did have an episode of fall on 06/15/18 with no reported head injury and was seen in the ED and discharged. The patient reported on admission that since the fall, she has had multiple episodes of dizziness associated with head positioning that resolve spontaneously with time though she continues to feel unsteady. In the ED, CT angiogram of head and neck was negative for bleeding or dissection. She was admitted for further evaluation of possible seizure episode w/ dizziness. Neurology was consulted and recommended MRI brain. Patient refused EEG stating that her out of town neurologist recommends against them since they cause her to have seizures. The patient's dizziness gradually improved though she continued to need a walker for ambulation. The transient episode of aphasia and confusion prior to presentation was believed to be from TIA. She was continued on Plavix and Statin therapy along with Meclizine. The patient was also informed about the mediastinal LAD and the need for f/u with her PMD for repeat imaging to ensure resolution. The patient was advised to f/u with her Neurologist upon discharge for possible EEG. She is presently stable, ready, and agreeable for discharge to rehab facility. Physical Examination General: Non-toxic, in no acute distress HEENT: NC/AT, anicteric sclerae, moist conjunctiva, no lid-lag, PERRLA, oropharynx clear, no erythema, exudates Cardiovascular: S1/S2 wnl, no murmurs, rubs, or gallops Lungs: Clear to auscultation, normal respiratory effort, no accessory muscle use Abdominal: Soft, nontender, non-distended, no guarding, rebound, or rigidity, normoactive bowel sounds Skin: Warm, dry Extremities: No edema or contractures Psychiatric: Alert and oriented to person, place and time, appropriate affect, Intact judgment Neuro: CN II-XII grossly intact, Strength 5/5 throughout, [id number] wnl, no pronator drift, sensation to light touch intact throughout, no facial assymetry noted Discharge diagnosis: Intermittent Dizziness, Confusion - resolved, Mediastinal LAD, HTN, Epilepsy, Asthma, GERD, hx of closed head injury A total of 60 minutes of time were spent preparing this complex discharge summary. Pertinent Studies: CT Angiogram of head and neck: No evidence of aneurysm or dissection. No evidence of stenosis. Mediastinal adenopathy 3 cm. Echocardiogram: LVEF 55-60%. Normal LV wall thickness. Normal RV size and function Brain MRI w/o contrast: Nonspecific white matter demyelination may be due to chronic small vessel ischemia, w/ age related atrophy. Mild inflammatory changes mastoid air cells on the right. Patient Condition at Discharge: Good Plan - Discharge Summary New Discharge Prescriptions: Continue lamoTRIgine [LaMICtal] 150 mg PO BID #20 tab Atorvastatin [Lipitor] 10 mg PO DAILY Citalopram Hydrobromide [CeleXA] 20 mg PO HS Clopidogrel Bisulfate [Plavix] 75 mg PO HS Pantoprazole Sodium 40 mg PO DAILY amLODIPine [Norvasc] 10 mg PO DAILY Albuterol Inhaler [Ventolin Hfa Inhaler] 2 puff INHALATION RT-Q4H PRN PRN Reason: Shortness Of Breath ALPRAZolam [Xanax] 1 mg PO DAILY PRN PRN Reason: Anxiety Acetaminophen Tab [Tylenol] 1,000 mg PO Q6HR Calcium Carbonate/Vitamin D3 [Calcium 600-Vit D3 200 Tablet] 1 tab PO DAILY Discharge Medication List lamoTRIgine [LaMICtal] 150 mg PO BID #20 tab 01/13/14 [Rx] Atorvastatin [Lipitor] 10 mg PO DAILY 03/05/18 [History] Citalopram Hydrobromide [CeleXA] 20 mg PO HS 03/05/18 [History] Clopidogrel Bisulfate [Plavix] 75 mg PO HS 03/05/18 [History] ALPRAZolam [Xanax] 1 mg PO DAILY PRN 06/14/18 [History] Albuterol Inhaler [Ventolin Hfa Inhaler] 2 puff INHALATION RT-Q4H PRN 06/14/18 [ History] Pantoprazole Sodium 40 mg PO DAILY 06/14/18 [History] amLODIPine [Norvasc] 10 mg PO DAILY 06/14/18 [History] Acetaminophen Tab [Tylenol] 1,000 mg PO Q6HR 06/16/18 [History] Calcium Carbonate/Vitamin D3 [Calcium 600-Vit D3 200 Tablet] 1 tab PO DAILY [History] Follow up Appointment(s)/Referral(s): Parker Prescott DO [Primary Care Provider] - 06/26/18 3:15 pm (Monday) Patient Instructions/Handouts: Recurrent Seizures in Adults (ED) Discharge Disposition: TRANSFER TO SNF/ECF
== END 2018-06-21 19:25 | disposition home health service (06) ==
LOC: EC 16:08 → 4MS4W 20:37 → 3SCARD 06-17 16:45 → 3NMEDONC 06-20 00:21
PROVIDERS: ADMIT Internal Medicine; ATTEND Internal Medicine
DX: R42 Dizziness and giddiness (principal); R47.01 Aphasia; R41.0 Disorientation, unspecified; K21.9 Gastro-esophageal reflux disease without esophagitis; J45.909 Unspecified asthma, uncomplicated; I10 Essential (primary) hypertension; G40.909 Epilepsy, unspecified, not intractable, without status epilepticus; E78.5 Hyperlipidemia, unspecified; F40.240 Claustrophobia; F41.0 Panic disorder [episodic paroxysmal anxiety]; F32.9 Major depressive disorder, single episode, unspecified; F41.9 Anxiety disorder, unspecified; K57.90 Diverticulosis of intestine, part unspecified, without perforation or abscess without bleeding; E87.6 Hypokalemia; E78.1 Pure hyperglyceridemia; R26.81 Unsteadiness on feet; R59.0 Localized enlarged lymph nodes; R51 Headache; Z79.02 Long term (current) use of antithrombotics/antiplatelets; Z79.899 Other long term (current) drug therapy; Z87.820 Personal history of traumatic brain injury; Z88.6 Allergy status to analgesic agent; Z91.81 History of falling; Z90.49 Acquired absence of other specified parts of digestive tract; Z90.710 Acquired absence of both cervix and uterus; Z90.89 Acquired absence of other organs; Z87.891 Personal history of nicotine dependence; Z80.0 Family history of malignant neoplasm of digestive organs; Z80.42 Family history of malignant neoplasm of prostate
CPT/HCPCS: 96376 ×2; 96372 ×4; 96361; 96374; 99285; 36415; 93005; 93306; 97116 ×3; 97530; 97162; 97535 ×2; 97166; 80061; 80053; 80048 ×2; 80175; 83735; 85025; 81001; 83090; 80306; 80320; 70496; 70498; 70551; G0378 ×6; J2060 ×2; J1650 ×4; Q9967

== ENCOUNTER 2018-09-25 18:26 | Emergency (ER) | payer OTHER ==
[2018-09-25 18:32] VITALS: TEMP 97.8
[2018-09-25] MEDS ORDERED: SODIUM CHLORIDE 0.9% 500 ML 500 ML IV STA (20:27)
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
--- NOTE | 2018-09-25 21:51 | XR ---
EXAMINATION: XR chest 2V DATE AND TIME: 09/25/2018 9:31 PM CLINICAL INDICATION: PHH; difficulty breathing TECHNIQUE: Departmental protocol COMPARISON: 06/14/2018 FINDINGS: Emphysematous changes are redemonstrated. Lungs are clear. The pleural spaces are negative. The cardiac silhouette is not enlarged. The remainder of the mediastinal silhouette is unremarkable. The skeletal structures and soft tissues are negative for acute findings. IMPRESSION: NO ACUTE PROCESS.
[2018-09-25 22:34] LABS: Basophils % (A) 1 %; Eosinophils # (A) 0.1 k/uL (0-0.7); Eosinophils % (A) 3 %; HCT 37.3 % (34.0-46.0); HGB 12.2 gm/dL (11.4-16.0); Lymphocytes # (A) 2.2 k/uL (1.0-4.8); Lymphocytes % (A) 40 %; MCH 31.9 pg (25.0-35.0); MCHC 32.7 g/dL (31.0-37.0); MCV 97.3 fL (80.0-100.0); Mean Platelet Volume 6.3; Monocytes # (A) 0.3 k/uL (0-1.0); Monocytes % (A) 6 %; Neutrophils # (A) 2.7 k/uL (1.3-7.7); Neutrophils % (A) 49 %; Platelet Count 224 k/uL (150-450); RBC 3.84 m/uL (3.80-5.40); WBC 5.5 k/uL (3.8-10.6)
[2018-09-25 22:43] LABS: Creatine Kinase 37 U/L (30-135); Partial Thromboplastin Time 24.5 sec (22.0-30.0); Prothrombin Time 10.3 sec (9.0-12.0)
[2018-09-25 22:45] LABS: ALT 27 U/L (9-52); AST 27 U/L (14-36); Albumin 4.5 g/dL (3.5-5.0); Alkaline Phosphatase 84 U/L (38-126); Anion Gap 9 mmol/L; Blood Urea Nitrogen 20 mg/dL (7-17); Calcium 9.9 mg/dL (8.4-10.2); Carbon Dioxide 23 mmol/L (22-30); Chloride 109 mmol/L (98-107); Glucose 83 mg/dL (74-99); Potassium 4.1 mmol/L (3.5-5.1); Sodium 141 mmol/L (137-145); Total Bilirubin 0.7 mg/dL (0.2-1.3); Total Protein 6.9 g/dL (6.3-8.2)
[2018-09-25 22:55] LABS: Creatine Kinase MB 0.3 ng/mL (0.0-2.4); Troponin I <0.012 ng/mL (0.000-0.034)
[2018-09-26 00:46] VITALS: BP 131/75; PULSE 75; RESP 18
== END 2018-09-26 00:30 | disposition home or self-care (01) ==
LOC: EC 18:26
DX: R53.1 Weakness (principal); R53.81 Other malaise; R06.02 Shortness of breath; R42 Dizziness and giddiness; I45.10 Unspecified right bundle-branch block; K21.9 Gastro-esophageal reflux disease without esophagitis; E78.5 Hyperlipidemia, unspecified; I10 Essential (primary) hypertension; F32.9 Major depressive disorder, single episode, unspecified; F41.0 Panic disorder [episodic paroxysmal anxiety]; Z87.891 Personal history of nicotine dependence; Z79.02 Long term (current) use of antithrombotics/antiplatelets; Z79.899 Other long term (current) drug therapy; Z88.6 Allergy status to analgesic agent
CPT/HCPCS: 36415; 71046; 80053; 82550; 82553; 83880; 84484; 85025; 85379; 85610; 85730; 93005; 96360; 99285

== ENCOUNTER 2020-08-24 01:37 | Emergency (ER) | payer OTHER ==
[2020-08-24 01:51] VITALS: TEMP 98
[2020-08-24] MEDS ORDERED: SODIUM CHLORIDE 0.9% 500 ML 500 ML IV STA ×2 (02:03→02:58)
[2020-08-24] MEDS ORDERED: LORazepam 2 MG/ML INJ IV STA (02:04)
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
[2020-08-24 02:28] LABS: Basophils # (A) 0.1 k/uL (0-0.2); Basophils % (A) 1 %; Eosinophils # (A) 0.2 k/uL (0-0.7); Eosinophils % (A) 2 %; HCT 39.8 % (34.0-46.0); Lymphocytes % (A) 19 %; MCHC 35.1 g/dL (31.0-37.0); MCV 91.2 fL (80.0-100.0); Monocytes # (A) 0.5 k/uL (0-1.0); Monocytes % (A) 5 %; Neutrophils # (A) 7.5 k/uL (1.3-7.7); Neutrophils % (A) 72 %; Platelet Count 279 k/uL (150-450); RBC 4.36 m/uL (3.80-5.40); RDW 12.2 % (11.5-15.5); WBC 10.5 k/uL (3.8-10.6)
[2020-08-24 02:44] LABS: ALT 19 U/L (4-34); AST 24 U/L (14-36); Acetaminophen <10.0 ug/mL; African American GFR (CKD) 78 (>60 ml/min/1.73 sqM); Alcohol <10 mg/dL; Alkaline Phosphatase 88 U/L (38-126); Anion Gap 15 mmol/L; Blood Urea Nitrogen 21 mg/dL (7-17); Calcium 10.1 mg/dL (8.4-10.2); Carbon Dioxide 14 mmol/L (22-30); Chloride 110 mmol/L (98-107); Glucose 102 mg/dL (74-99); Non-African American GFR(CKD) 67 (>60 ml/min/1.73 sqM); Potassium 3.3 mmol/L (3.5-5.1); Salicylate <1.0 mg/dL; Sodium 139 mmol/L (137-145); Total Bilirubin 0.8 mg/dL (0.2-1.3); Total Protein 7.7 g/dL (6.3-8.2)
--- NOTE | 2020-08-24 03:00 | XR ---
EXAM: XR Chest, 1 View CLINICAL HISTORY: ITS.REASON XR Reason: altered mental status TECHNIQUE: Frontal view of the chest. COMPARISON: 09/25/18 FINDINGS: Lungs: Unremarkable. No consolidation. Pleural space: Questionable pleural calcifications. No pneumothorax. Heart: Unremarkable. No cardiomegaly. Mediastinum: Unremarkable. Bones/joints: Osteopenia. Mild degenerative changes. IMPRESSION: No acute findings in the chest.
--- NOTE | 2020-08-24 03:05 | CT ---
EXAM: CT Head Without Intravenous Contrast CLINICAL HISTORY: ITS.REASON CT Reason: altered mental status TECHNIQUE: Axial computed tomography images of the head/brain without intravenous contrast. CTDI is 49.27 mGy and DLP is 1074.4 mGy-cm. This CT exam was performed using one or more of the following dose reduction techniques: automated exposure control, adjustment of the mA and/or kV according to patient size, and/or use of iterative reconstruction technique. COMPARISON: 06/18/2018 FINDINGS: Brain: No hemorrhage or mass effect. Right-sided choroidal fissure cyst. Ventricles: No hydrocephalus. Bones/joints: Unremarkable. Soft tissues: Unremarkable. Sinuses: Unremarkable. Mastoid air cells: Clear. IMPRESSION: No acute hemorrhage, hydrocephalus, or mass effect.
[2020-08-24 03:44] VITALS: RESP 16
[2020-08-24 04:41] LABS: Appearance,Urine Clear (Clear); Bilirubin,Urine Negative (Negative); Blood,Urine Moderate (Negative); Color,Urine Yellow; Glucose,Urine (UA) Negative (Negative); Ketones,Urine 2+ (Negative); Leukocyte Esterase,Urine Negative (Negative); Mucus,Urine Rare /hpf; Nitrite,Urine Negative (Negative); PH, Urine 5.5 (5.0-8.0); Protein,Urine Trace (Negative); RBC,Urine 18 /hpf (0-5); Specific Gravity,Urine 1.019 (1.001-1.035); Urobilinogen,Urine <2.0 mg/dL (<2.0); WBC,Urine 2 /hpf (0-5)
[2020-08-24 05:17] VITALS: BP 150/77; PULSE 82
== END 2020-08-24 05:17 | disposition home or self-care (01) ==
LOC: EC 01:37
DX: F13.231 Sedative, hypnotic or anxiolytic dependence with withdrawal delirium (principal); F41.0 Panic disorder [episodic paroxysmal anxiety]; F32.9 Major depressive disorder, single episode, unspecified; J45.909 Unspecified asthma, uncomplicated; E78.5 Hyperlipidemia, unspecified; I10 Essential (primary) hypertension; G40.909 Epilepsy, unspecified, not intractable, without status epilepticus; Z79.899 Other long term (current) drug therapy; Z79.51 Long term (current) use of inhaled steroids; Z79.52 Long term (current) use of systemic steroids; Z79.02 Long term (current) use of antithrombotics/antiplatelets; Z87.891 Personal history of nicotine dependence; Z88.6 Allergy status to analgesic agent
CPT/HCPCS: 99285; 96374; 96361 ×2; 36415; 93005; 80053; 80175; 83605; 84484; 85025; 81001; 83520; 80143; 80320; 71045; 70450; J2060; 80329

== ENCOUNTER 2020-09-17 14:26 | Emergency (ER) | payer OTHER ==
[2020-09-17 14:36] VITALS: RESP 18; TEMP 98.4
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
[2020-09-17 15:51] LABS: Albumin 4.3 g/dL (3.5-5.0); Basophils % (A) 1 %; Calcium 9.9 mg/dL (8.4-10.2); Eosinophils # (A) 0.2 k/uL (0-0.7); Eosinophils % (A) 3 %; HCT 38.3 % (34.0-46.0); HGB 13.3 gm/dL (11.4-16.0); Lymphocytes # (A) 1.4 k/uL (1.0-4.8); Lymphocytes % (A) 24 %; MCH 32.5 pg (25.0-35.0); MCHC 34.8 g/dL (31.0-37.0); MCV 93.3 fL (80.0-100.0); Magnesium 1.5 mg/dL (1.6-2.3); Mean Platelet Volume 6.2; Monocytes # (A) 0.3 k/uL (0-1.0); Monocytes % (A) 6 %; Neutrophils # (A) 3.7 k/uL (1.3-7.7); Neutrophils % (A) 65 %; Platelet Count 284 k/uL (150-450); RBC 4.11 m/uL (3.80-5.40); Total Bilirubin 0.7 mg/dL (0.2-1.3); Total Protein 6.4 g/dL (6.3-8.2); WBC 5.7 k/uL (3.8-10.6)
[2020-09-17 15:57] LABS: D-Dimer 0.33 mg/L FEU (<0.60); Partial Thromboplastin Time 22.8 sec (22.0-30.0); Prothrombin Time 10.4 sec (9.0-12.0)
--- NOTE | 2020-09-17 16:25 | XR ---
EXAMINATION TYPE: XR chest 2V DATE OF EXAM: 09/17/2020 COMPARISON: Chest x-ray 08/24/2020 HISTORY: Chest pain, cough, shortness of breath TECHNIQUE: Frontal and lateral views of the chest are obtained. FINDINGS: There is no focal air space opacity, pleural effusion, or pneumothorax seen. There are pro minent lung volumes with flattening the hemidiaphragms, increased AP diameter chest suggesting underl vijaya COPD. There are overlying leads. The cardiac silhouette size is within normal limits. The osse ous structures are intact, there is a spinal curvature. IMPRESSION: No acute cardiopulmonary process.
[2020-09-17 17:19] VITALS: BP 131/51; PULSE 63
== END 2020-09-17 17:19 | disposition home or self-care (01) ==
LOC: EC 14:26
DX: R06.02 Shortness of breath (principal); R06.09 Other forms of dyspnea; I45.10 Unspecified right bundle-branch block; I10 Essential (primary) hypertension; E78.5 Hyperlipidemia, unspecified; G40.909 Epilepsy, unspecified, not intractable, without status epilepticus; K21.9 Gastro-esophageal reflux disease without esophagitis; J45.909 Unspecified asthma, uncomplicated; F41.0 Panic disorder [episodic paroxysmal anxiety]; F32.9 Major depressive disorder, single episode, unspecified; Z20.822 Contact with and (suspected) exposure to COVID-19; Z79.02 Long term (current) use of antithrombotics/antiplatelets; Z79.899 Other long term (current) drug therapy; Z88.6 Allergy status to analgesic agent; Z91.048 Other nonmedicinal substance allergy status; Z87.891 Personal history of nicotine dependence
CPT/HCPCS: 36415; 71046; 80053; 83735; 84484; 85025; 85379; 85610; 85730; 87635; 93005; 99285

== ENCOUNTER 2021-10-29 13:23 | Emergency (ER) | payer BC, MEDICARE ==
[2021-10-29 14:19] LABS: Basophils % (A) 0 %; Eosinophils # (A) 0.2 k/uL (0-0.7); Eosinophils % (A) 3 %; HCT 38.7 % (34.0-46.0); HGB 13.6 gm/dL (11.4-16.0); Lymphocytes # (A) 1.3 k/uL (1.0-4.8); Lymphocytes % (A) 24 %; MCH 33.4 pg (25.0-35.0); MCHC 35.1 g/dL (31.0-37.0); MCV 95.2 fL (80.0-100.0); Mean Platelet Volume 6.6; Monocytes # (A) 0.3 k/uL (0-1.0); Monocytes % (A) 6 %; Neutrophils # (A) 3.7 k/uL (1.3-7.7); Neutrophils % (A) 65 %; Platelet Count 263 k/uL (150-450); RBC 4.06 m/uL (3.80-5.40); RDW 13.4 % (11.5-15.5); WBC 5.6 k/uL (3.8-10.6)
[2021-10-29 14:28] LABS: INR 0.9 (<1.2); Partial Thromboplastin Time 23.3 sec (22.0-30.0); Prothrombin Time 10.2 sec (9.0-12.0)
[2021-10-29 14:36] LABS: Albumin 4.7 g/dL (3.5-5.0); Calcium 9.6 mg/dL (8.4-10.2); Magnesium 1.6 mg/dL (1.6-2.3); Potassium 3.5 mmol/L (3.5-5.1); Total Bilirubin 0.7 mg/dL (0.2-1.3); Total Protein 6.9 g/dL (6.3-8.2)
--- NOTE | 2021-10-29 14:37 | XR ---
EXAMINATION TYPE: XR chest 2V DATE OF EXAM: 10/29/2021 COMPARISON: Chest x-ray 09/16/[address] 06/16/2018 HISTORY: Chest pain, cough and difficulty breathing TECHNIQUE: Frontal and lateral views of the chest are obtained. FINDINGS: There is no focal air space opacity, pleural effusion, or pneumothorax seen. The cardiac silhouette size is within normal limits. Prominent lung volumes with flattening the hemidiaphragms ma y be indicative of underlying COPD. Prominence of the pulmonary artery may be indicative of pulmonary artery hypertension or patient's old granulomatous disease. There are some interstitial changes The osseous structures are intact. There is evidence of old granulomatous disease. IMPRESSION: No acute cardiopulmonary process. Old granulomatous disease, interstitial lung disease.
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
[2021-10-29 17:34] VITALS: BP 129/67; PULSE 72; RESP 16; TEMP 98
[2021-10-29 17:53] LABS: Amphetamine Screen,Urine Not Detected (NotDetected); Barbiturate Screen,Urine Not Detected (NotDetected); Benzodiazepines Screen,Urine Detected (NotDetected); Cocaine Screen,Urine Not Detected (NotDetected); Methadone Screen, Urine Not Detected (NotDetected); Opiate Screen,Urine Not Detected (NotDetected); Oxycodone Screen, Urine Not Detected (NotDetected); Phencyclidine Screen,Urine Not Detected (NotDetected); Tricyclic Antidepressant,Urine Not Detected (NotDetected); Urn Cannabinoid Scrn Not Detected (NotDetected)
== END 2021-10-29 17:41 | disposition home or self-care (01) ==
LOC: EC 13:23
DX: F41.9 Anxiety disorder, unspecified (principal); F32.A Depression, unspecified; I10 Essential (primary) hypertension; J45.909 Unspecified asthma, uncomplicated; K21.9 Gastro-esophageal reflux disease without esophagitis; E78.5 Hyperlipidemia, unspecified; G40.909 Epilepsy, unspecified, not intractable, without status epilepticus; Z87.891 Personal history of nicotine dependence; Z79.51 Long term (current) use of inhaled steroids; Z79.899 Other long term (current) drug therapy
CPT/HCPCS: 36415; 71046; 80053; 80306; 82075; 83690; 83735; 83880; 84484; 85025; 85610; 85730; 93005; 99285

== ENCOUNTER 2021-11-03 16:01 | Emergency (ER) | payer BC, MEDICARE ==
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
[2021-11-04] MEDS ORDERED: LORazepam 2 MG/ML INJ IM STA (01:45)
[2021-11-04 02:04] VITALS: BP 135/81; PULSE 78; RESP 18; TEMP 98.4
== END 2021-11-04 02:04 | disposition home or self-care (01) ==
LOC: EC 16:01
DX: F41.9 Anxiety disorder, unspecified (principal); J45.909 Unspecified asthma, uncomplicated; K21.9 Gastro-esophageal reflux disease without esophagitis; E78.5 Hyperlipidemia, unspecified; I10 Essential (primary) hypertension; F32.A Depression, unspecified; Z90.49 Acquired absence of other specified parts of digestive tract; Z90.710 Acquired absence of both cervix and uterus; Z87.891 Personal history of nicotine dependence
CPT/HCPCS: 82075; 96372; 99283

== ENCOUNTER 2021-11-24 11:07 | Inpatient (IN) | payer BC, MEDICARE ==
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
[2021-11-24] MEDS ORDERED: LORazepam 2 MG/ML INJ IM STA (13:01)
[2021-11-24 14:39] LABS: Amphetamine Screen,Urine Not Detected (NotDetected); Barbiturate Screen,Urine Not Detected (NotDetected); Benzodiazepines Screen,Urine Detected (NotDetected); Cocaine Screen,Urine Not Detected (NotDetected); Methadone Screen, Urine Not Detected (NotDetected); Opiate Screen,Urine Not Detected (NotDetected); Oxycodone Screen, Urine Not Detected (NotDetected); Phencyclidine Screen,Urine Not Detected (NotDetected); Tricyclic Antidepressant,Urine Not Detected (NotDetected); Urn Cannabinoid Scrn Not Detected (NotDetected)
[2021-11-24 16:01] LABS: Appearance,Urine Clear (Clear); Bilirubin,Urine Negative (Negative); Blood,Urine Moderate (Negative); Color,Urine Yellow; Glucose,Urine (UA) Negative (Negative); Ketones,Urine 2+ (Negative); Leukocyte Esterase,Urine Negative (Negative); Mucus,Urine Occasional /hpf; Nitrite,Urine Negative (Negative); PH, Urine 5.5 (5.0-8.0); Protein,Urine Trace (Negative); RBC,Urine 2 /hpf (0-5); Specific Gravity,Urine 1.021 (1.001-1.035); WBC,Urine 1 /hpf (0-5)
[2021-11-24 16:13] LABS: Basophils % (A) 1 %; Eosinophils # (A) 0.3 k/uL (0-0.7); Eosinophils % (A) 5 %; HGB 13.2 gm/dL (11.4-16.0); Lymphocytes # (A) 1.4 k/uL (1.0-4.8); Lymphocytes % (A) 27 %; MCH 32.5 pg (25.0-35.0); MCHC 33.8 g/dL (31.0-37.0); MCV 96.2 fL (80.0-100.0); Mean Platelet Volume 6.7; Monocytes # (A) 0.3 k/uL (0-1.0); Monocytes % (A) 6 %; Neutrophils # (A) 3.1 k/uL (1.3-7.7); Neutrophils % (A) 60 %; Platelet Count 288 k/uL (150-450); RBC 4.05 m/uL (3.80-5.40); RDW 12.3 % (11.5-15.5); WBC 5.2 k/uL (3.8-10.6)
[2021-11-24 16:15] LABS: Glucose,Whole Blood 100 mg/dL (75-99)
[2021-11-24 16:24] LABS: ALT 20 U/L (4-34); AST 20 U/L (14-36); African American GFR (CKD) >90 (>60 ml/min/1.73 sqM); Albumin 4.5 g/dL (3.5-5.0); Alkaline Phosphatase 66 U/L (38-126); Anion Gap 12 mmol/L; Blood Urea Nitrogen 14 mg/dL (7-17); Calcium 9.5 mg/dL (8.4-10.2); Carbon Dioxide 22 mmol/L (22-30); Chloride 104 mmol/L (98-107); Glucose 100 mg/dL (74-99); Non-African American GFR(CKD) >90 (>60 ml/min/1.73 sqM); Potassium 3.5 mmol/L (3.5-5.1); Sodium 138 mmol/L (137-145); Total Bilirubin 0.8 mg/dL (0.2-1.3); Total Protein 6.7 g/dL (6.3-8.2)
[2021-11-24] MEDS ORDERED: LORazepam 0.5 MG TAB PO PRN (18:43)
[2021-11-24] MEDS ORDERED: MAGNESIUM HYDROXIDE 2,400 MG/10 ML CUP PO PRN (18:43)
[2021-11-24] MEDS ORDERED: MAG HYDROX/AL HYDROX/SIMETH 30 ML CUP PO PRN (18:43)
[2021-11-24] MEDS ORDERED: ACETAMINOPHEN TAB 325 MG TAB PO PRN (18:43)
[2021-11-24] MEDS ORDERED: LORazepam 2 MG/ML INJ IM PRN (18:46)
[2021-11-24] MEDS ORDERED: ALBUTEROL INHALER 60 PUFF/8 GM INHALER (MHU) INHALATION PRN (18:48)
[2021-11-24] MEDS: lamoTRIgine 25 MG TAB PO SCH (21:13)
[2021-11-25] MEDS: traZODone HCL 50 MG TAB PO PRN (03:03)
[2021-11-25] MEDS: lamoTRIgine 25 MG TAB PO SCH ×3 (08:28→16:39)
[2021-11-25] MEDS: amLODIPine 10 MG TAB PO SCH ×2 (08:28→08:35)
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
[2021-11-25] MEDS ORDERED: clonazePAM 0.5 MG TAB PO PRN (10:09)
[2021-11-25 11:20] VITALS: BMI 19.5
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
[2021-11-25] MEDS: hydrOXYzine pamoate 25 MG CAP PO PRN (14:50)
[2021-11-25] MEDS ORDERED: ALBUTEROL HFA INHALER INHALATION PRN (16:00)
[2021-11-25] MEDS: MIRTAZAPINE 15 MG TAB PO SCH (21:42)
[2021-11-25 23:26] LABS: Chol/HDL Ratio 5.08 Ratio; LDL Cholesterol,Calculated 152.3 mg/dL (0.0-131.0)
[2021-11-26 05:26] LABS: Glucose,Whole Blood 107 mg/dL (75-99)
[2021-11-26] MEDS: hydrOXYzine pamoate 25 MG CAP PO PRN (05:48)
[2021-11-26] MEDS: lamoTRIgine 25 MG TAB PO SCH ×2 (09:19→09:20)
[2021-11-26] MEDS: amLODIPine 10 MG TAB PO SCH (09:19)
--- NOTE | 2021-11-26 15:15 | P.PN ---
Subjective Progress Note Date: 11/26/21 Principal diagnosis: Major depressive disorder severe Anxiety disorder chronic with acute exacerbation Rule out personality disorder Subjective data: The new medications are not working well, it is actually making me very angry and frustrated I had stopped taking the Lamictal for some time and I would like to take something different The other medication hydroxyzine seems to be making me extremely angry and agitated I will not take that medication I want something different I'm afraid of dying I depression has suddenly gotten worse after I went through some losses where my last living brother in my dog also Objective data/:: Patient comes across his anxious and describes her symptoms with a dramatic flair Patient also seems to be slightly shaky Patient denies any suicidal or homicidal ideations She exhibits passive dependency traits Self-esteem and confidence appears to be low Patient admits feeling helpless and hopeless but on the same token also seems to be controlling especially for her medications Diagnostic impression: Major depressive disorder chronic with acute exacerbation Anxiety disorder unspecified Personality disorder unspecified Plan: Therapy is focused on providing supportive care and improving her coping abilities Discussed relaxation techniques Patient is adamant about not taking the Lamictal and hydroxyzine Discussed trying Depakote 500 mg at bedtime to start with and to titrate to response Discussed effects and side effects For daytime anxiety we'll start the patient on gabapentin 100 mg up to 3 times a day when necessary Patient was advised that this was a low dose and we will make adjustments depending on the response Discussed effects and side effects as well as to also give the medication adequate time [facility] 11/26/2021 Objective - Vital Signs Vital signs: Vital Signs Temp 97.7 F 11/26/21 05:25 Pulse 120 H 11/26/21 05:25 Resp 18 11/26/21 05:25 BP 145/94 11/26/21 05:25 Pulse Ox 97 11/26/21 05:25 Intake & Output 11/25/21 11/26/21 11/26/21 18:59 06:59 18:59 Weight 50.122 kg - Labs CBC & Chem 7: 11/24/21 16:05 11/24/21 16:05 Labs: Abnormal Lab Results - Last 24 Hours (Table) 11/24/21 11/26/21 Range/Units 16:05 05:24 POC Glucose (mg/dL) 107 H (75-99) mg/dL Triglycerides 174.00 H (0.00-149.00) mg/dL Cholesterol 233.00 H (0.00-200.00) mg/dL LDL Cholesterol, Calc 152.3 H (0.0-131.0) mg/dL
[2021-11-26] MEDS: GABAPENTIN 100 MG CAP PO PRN (17:25)
[2021-11-26] MEDS: MIRTAZAPINE 15 MG TAB PO SCH (21:16)
[2021-11-26] MEDS: DIVALPROEX ER 500 MG TAB.ER.24H PO SCH (21:16)
[2021-11-27] MEDS: traZODone HCL 50 MG TAB PO PRN (02:04)
[2021-11-27] MEDS: DIVALPROEX ER 500 MG TAB.ER.24H PO SCH (08:38)
[2021-11-27] MEDS: amLODIPine 10 MG TAB PO SCH (08:38)
[2021-11-27] MEDS: PANTOPRAZOLE 40 MG TABLET PO SCH (08:38)
[2021-11-27] MEDS: GABAPENTIN 100 MG CAP PO PRN ×2 (09:08→17:10)
--- NOTE | 2021-11-27 11:23 | P.PN ---
Subjective Progress Note Date: 11/27/21 Principal diagnosis: Major depressive disorder severe Anxiety disorder chronic with acute exacerbation Rule out personality disorder Subjective data: The new medications are not working well, I feel anxious and restless I understand that I may be rushing and if you tell me to take and I will I'm afraid of dying and I am so anxious all the time Objective data/:: Patient comes across his anxious and describes her symptoms with a dramatic flair Patient also seems to be slightly shaky Patient denies any suicidal or homicidal ideations She exhibits passive dependency traits Self-esteem and confidence appears to be low Patient admits feeling helpless and hopeless but on the same token also seems to be controlling especially for her medications Patient also continue to follow this physician after the last interview where she wanted me to write down the name of the medications and would not agree to have the nurses do it She remains very attention seeking clingy and has very low self-esteem and confidence Diagnostic impression: Major depressive disorder chronic with acute exacerbation Anxiety disorder unspecified Personality disorder unspecified Plan: Therapy is focused on providing supportive care and improving her coping abilities Discussed relaxation techniques Patient is adamant about not taking the Lamictal and hydroxyzine Discussed trying Depakote 500 mg at bedtime to start with and to titrate to response Discussed effects and side effects Patient at this time is agreed to continue the medications but required frequent reinforcement and reassurance Continue current can support Eddie Bird M.D. 11/27/2021 Objective - Vital Signs Vital signs: Vital Signs Temp 98.0 F 11/27/21 02:05 Pulse 121 H 11/27/21 02:05 Resp 14 11/27/21 02:05 BP 136/73 11/27/21 02:05 Pulse Ox 97 11/26/21 05:25 - Labs CBC & Chem 7: 11/24/21 16:05 11/24/21 16:05
[2021-11-27] MEDS: MIRTAZAPINE 15 MG TAB PO SCH (21:08)
[2021-11-28] MEDS: DIVALPROEX ER 500 MG TAB.ER.24H PO SCH (08:44)
[2021-11-28] MEDS: amLODIPine 10 MG TAB PO SCH (08:44)
[2021-11-28] MEDS: PANTOPRAZOLE 40 MG TABLET PO SCH (08:47)
--- NOTE | 2021-11-28 09:46 | P.PN ---
Subjective Progress Note Date: 11/28/21 Principal diagnosis: Major depressive disorder severe Anxiety disorder chronic with acute exacerbation Rule out personality disorder Subjective data: I had a wonderful day yesterday U were right about the medication and that I should give it more time Patient however then followed this physician several times in the lobby and wanted to know if the anxiety medications are right She then stated that she wanted to have her anxiety medications changed because she gets more anxious right after she takes it Patient was again explained her tendency to be overly nervous and anxious and that the medications do not work that quickly to have an effect and that it appears to be more of her psychological condition to reach she seemed to be accepting and calmed down Objective data/:: overall remains anxious attention seeking with very low self-esteem and confidence Patient denies any suicidal or homicidal ideations She exhibits passive dependency traits Self-esteem and confidence appears to be low Patient admits feeling helpless and hopeless but on the same token also seems to be controlling especially for her medications Patient also continue to follow this physician after the last interview seeking reassurance She remains very attention seeking clingy and has very low self-esteem and confidence Diagnostic impression: Major depressive disorder chronic with acute exacerbation Anxiety disorder unspecified Personality disorder unspecified Plan: Therapy is focused on providing supportive care and improving her coping abilities Discussed relaxation techniques Discussed effects and side effects Patient at this time is agreed to continue the medications but required frequent reinforcement and reassurance Continue current care and support Eddie Bird M.D. 11/28/2021 Objective - Vital Signs Vital signs: Vital Signs Temp 98.1 F 11/28/21 06:43 Pulse 100 11/28/21 06:43 Resp 16 11/28/21 06:43 BP 127/70 11/28/21 06:43 Pulse Ox 97 11/28/21 06:43 Intake & Output 11/27/21 11/28/21 11/28/21 18:59 06:59 18:59 Weight 49.9 kg - Labs CBC & Chem 7: 11/24/21 16:05 11/24/21 16:05
[2021-11-28] MEDS ORDERED: hydrOXYzine pamoate 25 MG CAP PO PRN (15:53)
[2021-11-28] MEDS: traZODone HCL 50 MG TAB PO PRN (21:04)
[2021-11-28] MEDS: MIRTAZAPINE 15 MG TAB PO SCH (21:04)
[2021-11-29] MEDS: amLODIPine 10 MG TAB PO SCH (08:49)
[2021-11-29] MEDS: PANTOPRAZOLE 40 MG TABLET PO SCH (08:49)
[2021-11-29] MEDS: DIVALPROEX ER 500 MG TAB.ER.24H PO SCH (08:49)
[2021-11-29] MEDS ORDERED: traZODone HCL 50 MG TAB PO PRN (10:31)
--- NOTE | 2021-11-29 10:38 | P.PN ---
Progress Note - Text Progress Note Date: 11/29/21 Interval History: Patient was seen wandering the hallways and was directable and agreeable to georges phelps with appeals writer in the office. Patient claims that she is still feeling "very depressed" and also spoke significantly about her anxiety. She states that she feels unsafe to go home today. She claims that she has been feeling "off" in the mornings and describes it as a brain fog and confusion. She claims that she was recently started on Depakote and was okay with having it discontinued. She states that she is sleeping too much at night time and remains groggy in the morning. She states that she has been going to groups. She claims that her appetite has been poor and also sleep has been poor and quality. At this time patient denies any suicidal or homical ideations, intent or plan. Patient denies any auditory, visual hallucinations and denies any paranoia or delusions. Patient denies any side effects from the medications and has been compliant with meds. Mental Status Exam: General Appearance: Patient appears to be thin, elderly, stated age is alert, directable, and attempts to be cooperative. Behavior: Patient is calmly seated without any agitated behavior. Speech: Patient's speech is fluent and nonpressured. Soft tone Mood/Affect: Mood is "very depressed", affect is congruent and constricted. Suicidality/Homicidality: Patient denies having any suicidal or homicidal ideation intent or plan. Perceptions: Patient denies any visual hallucinations and denies any auditory hallucinations Though content/process: Speaking about her symptoms. Catastrophizing. Logical. Memory and concentration: AOX3, grossly intact for the purposes of this session Judgment and insight: Improving mildly Assessment Major Depressive disorder, recurrent, severe, with anxious features Seizure disorder Plan: -Patient continues to meet criteria for inpatient psychiatric admission for symptom stabilization and safety. Patient has signed adult voluntary form and medication consent and was placed in patient's chart. -Medications: Remeron 15 mg daily at bedtime for insomnia/mood, Cymbalta was started 30 mg daily for mood/anxiety, trazodone decreased down to 25 mg daily at bedtime when necessary for insomnia. BuSpar added 10 mg 3 times a day when necessary for anxiety. -When necessary Ativan and Haldol for agitation/aggression. -NRT - not needed as patient does not smoke -SW on board for discharge planning. Encouraged the patient to participate in milieu. Likely discharge in 1-2 days back home.
[2021-11-29] MEDS: DULoxetine HCL 30 MG CAPSULE.DR PO SCH (10:54)
[2021-11-29] MEDS: busPIRone HCl 10 MG TAB PO PRN ×2 (11:30→18:39)
[2021-11-29] MEDS: MIRTAZAPINE 15 MG TAB PO SCH (21:20)
[2021-11-30] MEDS: busPIRone HCl 10 MG TAB PO PRN (02:43)
[2021-11-30] MEDS: PANTOPRAZOLE 40 MG TABLET PO SCH (08:23)
[2021-11-30] MEDS: amLODIPine 10 MG TAB PO SCH (08:23)
[2021-11-30] MEDS: DULoxetine HCL 30 MG CAPSULE.DR PO SCH ×2 (08:25→20:51)
[2021-11-30] MEDS ORDERED: busPIRone HCl 10 MG TAB PO PRN (10:03)
--- NOTE | 2021-11-30 10:26 | P.PN ---
Progress Note - Text Progress Note Date: 11/30/21 Interval History: Patient was seen laying in her bed this morning and was directable and agreeable to speak with entry writer in the office. Patient continues to catastrophize and be focused on her symptoms. She continues to state that she is feeling "very depressed" and continues to also endorsed anxiety. She states that it improved yesterday when she began taking the Cymbalta. She continues to be confused about her medications and asked about Depakote and Lamictal. Ror Engineer explained the mood stabilizing properties of these medications and also their side effects and benefits. Patient claims that yesterday she had a tough time sleeping and did not request trazodone to sleep. She states that she was having "thoughts of people dying" and also claims that she was feeling suicidal however had no intent or plan. She states that she has been going to groups however has mainly been seen isolating on the unit. She claims that her appetite has been improving. At this time patient denies any suicidal or homical ideations, intent or plan. Patient denies any auditory, visual hallucinations and denies any paranoia or delusions. Patient denies any side effects from the medications and has been compliant with meds. Mental Status Exam: General Appearance: Patient appears to be thin, elderly, stated age is alert, directable, and attempts to be cooperative. Behavior: Patient is calmly seated without any agitated behavior. Speech: Patient's speech is fluent and nonpressured. Soft tone Mood/Affect: Mood is "very depressed", affect is congruent and constricted. Suicidality/Homicidality: Patient denies having any suicidal or homicidal ideation intent or plan. Perceptions: Patient denies any visual hallucinations and denies any auditory hallucinations Though content/process: Speaking about her symptoms. Catastrophizing. Logical Memory and concentration: AOX3, grossly intact for the purposes of this session Judgment and insight: Improving mildly Assessment Major Depressive disorder, recurrent, severe, with anxious features Seizure disorder Plan: -Patient continues to meet criteria for inpatient psychiatric admission for symptom stabilization and safety. Patient has signed adult voluntary form and medication consent and was placed in patient's chart. -Medications: Remeron 15 mg daily at bedtime for insomnia/mood, increase Cymbalta 30 mg BID for mood/anxiety, trazodone 25 mg daily at bedtime for insomnia/mood. increase BuSpar 20 mg 3 times a day when necessary for anxiety. consider adding on either lithium or lamictal for mood adjunct -When necessary Ativan and Haldol for agitation/aggression. -NRT - not needed as patient does not smoke -SW on board for discharge planning. Encouraged the patient to participate in milieu. Likely discharge in 1-2 days back home once patient improves clinically.
[2021-11-30] MEDS: MIRTAZAPINE 15 MG TAB PO SCH (20:52)
[2021-11-30] MEDS: traZODone HCL 50 MG TAB PO SCH (23:56)
[2021-12-01 07:06] VITALS: RESP 16
[2021-12-01] MEDS: DULoxetine HCL 30 MG CAPSULE.DR PO SCH (08:48)
[2021-12-01] MEDS: PANTOPRAZOLE 40 MG TABLET PO SCH (08:49)
[2021-12-01] MEDS: amLODIPine 10 MG TAB PO SCH (08:49)
--- NOTE | 2021-12-01 10:14 | P.PN ---
Progress Note - Text Progress Note Date: 12/01/21 Interval History: Patient was seen laying in her bed this morning and was directable and agreeable to speak with newswriter in the office. Patient continues to state that she feels off and is having a hard time describing her sx. she states that she is still feeling depressed and having some anxiety however this appears to be improving mildly. She states that she feels "drugged up" after taking her morning medications and the decision was made to switch the cymbalta to night time dosing. she states that she was able to sleep fairly last night. she continues to ask about lamictal or other mood stabilizing medications. She is denying any suicidal thoughts today. She states that she has been going to some groups. she continues to claim that she feels unsafe and scare to go home. She claims that her appetite has been improving. At this time patient denies any suicidal or homical ideations, intent or plan. Patient denies any auditory, visual hallucinations and denies any paranoia or delusions. Patient denies any side effects from the medications and has been compliant with meds. Mental Status Exam: General Appearance: Patient appears to be thin, elderly, stated age is alert, directable, and attempts to be cooperative. vague. Behavior: Patient is calmly seated without any agitated behavior. Speech: Patient's speech is fluent and nonpressured. Soft tone Mood/Affect: Mood is "depressed and drugged up", affect is congruent and constricted. Suicidality/Homicidality: Patient denies having any suicidal or homicidal ideation intent or plan. Perceptions: Patient denies any visual hallucinations and denies any auditory hallucinations Though content/process: Speaking about her symptoms. Catastrophizing. Logical. vague Memory and concentration: AOX3, grossly intact for the purposes of this session Judgment and insight: Improving mildly Assessment Major Depressive disorder, recurrent, severe, with anxious features Seizure disorder Plan: -Patient continues to meet criteria for inpatient psychiatric admission for symptom stabilization and safety. Patient has signed adult voluntary form and medication consent and was placed in patient's chart. -Medications: Remeron 15 mg daily at bedtime for insomnia/mood, switch Cymbalta 60 mg qhs for mood/anxiety, trazodone 25 mg daily at bedtime for insomnia/mood. decrease BuSpar 15 mg 3 times a day when necessary for anxiety. added on lamictal 25 mg bid for mood stabilization/depression. -When necessary Ativan and Haldol for agitation/aggression. -NRT - not needed as patient does not smoke -SW on board for discharge planning. Encouraged the patient to participate in milieu. Likely discharge in 1-2 days back home once patient improves clinically.
[2021-12-01] MEDS: lamoTRIgine 25 MG TAB PO SCH ×2 (11:01→21:00)
[2021-12-01] MEDS: busPIRone HCl 5 MG TAB PO PRN ×2 (11:01→17:40)
[2021-12-01] MEDS: MIRTAZAPINE 15 MG TAB PO SCH (21:00)
[2021-12-01] MEDS ORDERED: DULoxetine HCL 60 MG CAPSULE.DR PO SCH (21:00)
[2021-12-02] MEDS: traZODone HCL 50 MG TAB PO SCH (01:13)
[2021-12-02 06:54] VITALS: TEMP 98.1
[2021-12-02] MEDS: lamoTRIgine 25 MG TAB PO SCH (08:28)
[2021-12-02] MEDS: PANTOPRAZOLE 40 MG TABLET PO SCH (08:28)
[2021-12-02] MEDS: amLODIPine 10 MG TAB PO SCH ×2 (08:28→08:32)
[2021-12-02] MEDS: busPIRone HCl 5 MG TAB PO PRN (08:30)
[2021-12-02 08:33] VITALS: BP 93/58; PULSE 110
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
== END 2021-12-02 12:20 | disposition home or self-care (01) | DRG 885 ==
LOC: EC 11:07 → 3MHU 18:16
PROVIDERS: ADMIT Psychiatry & Neurology Psychiatry; ATTEND Psychiatry & Neurology Psychiatry
DX: F33.2 Major depressive disorder, recurrent severe without psychotic features (principal); F41.1 Generalized anxiety disorder; G40.909 Epilepsy, unspecified, not intractable, without status epilepticus; E78.5 Hyperlipidemia, unspecified; F22 Delusional disorders; F40.240 Claustrophobia; F41.0 Panic disorder [episodic paroxysmal anxiety]; F60.9 Personality disorder, unspecified; G47.00 Insomnia, unspecified; I10 Essential (primary) hypertension; J45.909 Unspecified asthma, uncomplicated; Z79.899 Other long term (current) drug therapy; Z80.0 Family history of malignant neoplasm of digestive organs; Z87.820 Personal history of traumatic brain injury; Z87.891 Personal history of nicotine dependence; Z20.822 Contact with and (suspected) exposure to COVID-19
CPT/HCPCS: 36415; 80053; 80061; 80306; 81001; 82075; 82607; 82746; 83036; 84443; 85025; 87635; 96372; 99284

== ENCOUNTER → 2022-04-28 | Outpatient (CLI) | payer BC, MEDICARE ==
[2022-04-28 13:11] LABS: African American GFR (CKD) >90 (>60 ml/min/1.73 sqM); Blood Urea Nitrogen 37 mg/dL (7-17); Non-African American GFR(CKD) >90 (>60 ml/min/1.73 sqM)
--- NOTE | 2022-04-30 08:35 | CT ---
EXAMINATION TYPE: CT ChestAbdPelvis w con CT DLP: 883 mGycm, Automated exposure control for dose reduction was used. DATE OF EXAM: 04/28/2022 2:50 PM COMPARISON: THIS EXAM WAS READ DURING PACS DOWNTIME, NO PRIORS AVAILABLE. CLINICAL INDICATION:Female, 72 years old with history of R63.4 Abn wt loss, abnormal weight loss Technique: Multiple axial images of the chest, abdomen, and pelvis were obtained. Two-dimensional cor onal and sagittal reconstructions were obtained. Contrast used:80cc mL of Isovue 300 with IV Contrast, Oral contrast used: with Oral Contrast Findings: CHEST: LUNGS/ PLEURA: No evidence of focal consolidation, pneumothorax or pleural effusion. Right upper lobe 5 mm pulmonary nodule image 24 series 3, left lower lobe 4 mm pulmonary nodule image 28, left upper lobe 4 mm pulmonary nodule image 14. There is a intrafissural lymph nodes present in left major fissu re on image 20, 27 and partially calcified on image 28 and 33. AIRWAY: Patent and unremarkable. HEART: Size within normal limits. MEDIASTINUM: Lymphadenopathy throughout the mediastinum including right low paratracheal measuring up to 16 mm in short axis, right pulmonary hilum measuring 3.2 x 1.9, left pulmonary hilum measuring 2. 7 x 1.7 cm and subcarinal measuring up to 1.8 cm in short axis. Some of these lymph nodes have calcif ication. Paraesophageal lymph node measuring up to 6 mm in short axis with calcification are also pre sent. VASCULATURE: No aortic aneurysm. MUSCULOSKELETAL: No acute osseous abnormalities. SOFT TISSUES/LYMPH NODES: Unremarkable. LOWER NECK: No significant findings. ABDOMEN: ABDOMEN LIVER: Hypodense lesion in the right hepatic lobe posteriorly measuring 10 mm with a flat appearance and coronal imaging. Additional hepatic dome subcentimeter hypodensity noted which is too small to ch aracterize. GALLBLADDER AND BILE DUCTS: Unremarkable. PANCREAS: Unremarkable. SPLEEN: Unremarkable. ADRENAL GLANDS: Unremarkable. KIDNEYS AND URETERS: No evidence of hydronephrosis or renal calculus. Right renal cysts present. PELVIS BLADDER: Unremarkable REPRODUCTIVE: Unremarkable. ABDOMEN & PELVIS STOMACH AND BOWEL: No evidence of bowel obstruction. Scattered clonic diverticula are present. PERITONEUM: No evidence of pneumoperitoneum or free fluid. VASCULATURE: No evidence of aortic aneurysm. MUSCULOSKELETAL: No acute osseous abnormalities, sclerotic focus within the sacrum likely representin g bony island. There is diffuse osseous demineralization. LYMPH NODES: No gross evidence for lymphadenopathy. SOFT TISSUE/ABDOMINAL WALL: Unremarkable IMPRESSION: 1. Mediastinal lymphadenopathy some of which demonstrates partial calcification. This is favored rep resent chronic granulomatous disease. Consider PET/CT to underlying lymphoma. No additional mass or f inding to correlate with patient's weight loss. 2. Hypodense within the liver likely representing cysts. 3. Scattered sub-6 mm pulmonary nodules. Attention on follow-up imaging with CT chest in one year. 4. Clonic diverticulosis.
== END | disposition home or self-care (01) ==
LOC: RADCTMAIN 12:17
PROVIDERS: ATTEND Family Medicine
DX: K57.30 Diverticulosis of large intestine without perforation or abscess without bleeding (principal); K76.89 Other specified diseases of liver; R91.8 Other nonspecific abnormal finding of lung field; R59.0 Localized enlarged lymph nodes
CPT/HCPCS: 82565; 84520; 71260; 74177; 36415; Q9967

== ENCOUNTER 2022-05-27 09:21 | Day surgery (SDC) | payer BC, MEDICARE ==
[2022-05-25 12:45] VITALS: BMI 19.6
[~2022-05-27 09:21] MED LIST changes: +LIDOCAINE 1% (10MG/ML) FOR IV START INTRADERMA PRN; -LIDOCAINE 1% 20 ML VIAL (10MG/ML) FOR IV START INTRADERMA PRN; -MIDAZOLAM 2 MG/2 ML VIAL IV PRN; -ONDANSETRON 4 MG/2 ML VIAL IVP ONE; -PROPOFOL 10 MG/ML 20 ML VIAL IV ONE
[2022-05-27 10:35] VITALS: TEMP 96.9
[2022-05-27] MEDS ORDERED: PROPOFOL 10 MG/ML 20 ML VIAL IV ONE (11:32)
--- NOTE | 2022-05-27 11:50 | P.PCN ---
Date of Procedure: 05/27/22 Procedure(s) Performed: BRIEF HISTORY: Patient is a 72-year-old pleasant white female scheduled for an elective colonoscopy as a part of evaluation of history of acute sigmoid diverticulitis a few months ago. PROCEDURE PERFORMED: Colonoscopy with biopsy. PREOPERATIVE DIAGNOSIS: History of sigmoid Diverticulitis. IV sedation per Anesthesia. PROCEDURE: After informed consent was obtained, the patient, was brought into the endoscopy unit. IV sedation was administered by Anesthesia under continuous monitoring. Digital rectal examination was normal. Initially the Olympus CF-160 flexible video colonoscope was then inserted in the rectum, gradually advanced into the cecum without any difficulty. Careful examination was performed as the scope was gradually being withdrawn. Ileocecal valve and the appendiceal orifice were visualized and appeared normal. Prep was excellent. Mucosa of the cecum, 3 -4 mm sessile polyp removed by cold biopsy. Rest of the ascending colon, transverse colon, descending colon, sigmoid colon, and rectum appeared normal. Moderate sigmoid diverticula seen. Retroflexion was performed in the rectum and no lesions were seen. The patient tolerated the procedure well. IMPRESSION: 3-4 mm cecal polyp status post cold biopsy Moderate sigmoid diverticulosis RECOMMENDATIONS: Findings of this examination were discussed with the patient family. She was advised to follow with the biopsy results. If the biopsy results adenoma she can have a repeat colonoscopy in 5 years..
[2022-05-27 11:56] VITALS: RESP 16
[2022-05-27 12:16] VITALS: BP 121/65; PULSE 82
== END 2022-05-27 12:33 | disposition home or self-care (01) ==
LOC: ORWHC2ENDO 09:21
PROVIDERS: ATTEND Internal Medicine Gastroenterology
DX: D12.0 Benign neoplasm of cecum (principal); K57.32 Diverticulitis of large intestine without perforation or abscess without bleeding; I10 Essential (primary) hypertension; E78.5 Hyperlipidemia, unspecified; J45.909 Unspecified asthma, uncomplicated; G40.909 Epilepsy, unspecified, not intractable, without status epilepticus; K21.9 Gastro-esophageal reflux disease without esophagitis; Z79.83 Long term (current) use of bisphosphonates; Z91.011 Allergy to milk products; Z87.820 Personal history of traumatic brain injury; Z88.6 Allergy status to analgesic agent
CPT/HCPCS: 88305; 45380; J2704

== ENCOUNTER → 2022-06-07 | Outpatient (CLI) | payer BC ==
--- NOTE | 2022-06-07 16:58 | US ---
EXAMINATION TYPE: US kidneys/renal and bladder DATE OF EXAM: 06/07/2022 COMPARISON: Correlation CT 04/28/2022 CLINICAL HISTORY: 72-year-old female R31.1 MICRO HEMATURIA. TECHNIQUE: Multiple sonographic images of the kidneys and bladder are obtained. FINDINGS: EXAM MEASUREMENTS: Right Kidney: 10.6 x 4.1 x 3.6 cm Left Kidney: 11.7 x 4.5 x 4.0 cm Right Kidney: Lower pole cyst 2.5 x 2.5 x 2.9 cm Left Kidney: wnl No hydronephrosis on either side. Bladder: Partially distended bladder shows no gross abnormality. Bilateral Jets seen: Yes IMPRESSION: No hydronephrosis. Benign right lower pole renal cyst measuring 2.9 cm.
== END | disposition home or self-care (01) ==
LOC: RADUSWWP 13:41
PROVIDERS: ATTEND Family Medicine
DX: N28.1 Cyst of kidney, acquired (principal)
CPT/HCPCS: 76770

== ENCOUNTER → 2022-07-01 | Outpatient (CLI) | payer BC | END | disposition home or self-care (01) | LOC: LABWHC1 15:43 | PROVIDERS: ATTEND Internal Medicine Critical Care Medicine | DX: D86.9 Sarcoidosis, unspecified (principal) | CPT/HCPCS: 36415; 82164 ==

== ENCOUNTER → 2023-09-27 | Outpatient (CLI) | payer BC ==
--- NOTE | 2023-09-27 15:12 | XR ---
EXAMINATION TYPE: XR chest 2V DATE OF EXAM: 09/27/2023 COMPARISON: 10/29/2021 TECHNIQUE: PA and lateral views submitted. HISTORY: Cough FINDINGS: No pleural effusion or pneumothorax. Heart size normal and no overt failure. Osseous structures demon strate hypertrophic and degenerative changes of the spine. A prominence of the pulmonary arteries. Un derlying COPD with subsegmental basilar consolidation. Degenerative change of the spine. Diffuse oste openia. IMPRESSION: 1. Correlate for left lower lobe pneumonia..
== END | disposition home or self-care (01) ==
LOC: RADXRWHC 14:52
PROVIDERS: ATTEND Family Medicine
DX: J18.9 Pneumonia, unspecified organism (principal); R05.9 Cough, unspecified
CPT/HCPCS: 71046

== ENCOUNTER 2023-10-08 14:05 | Observation (INO) | payer BC ==
[2023-10-08] MEDS: IPRATROPIUM-ALBUTEROL 3 ML NEB INHALATION STA ×2 (15:14→17:26)
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
[2023-10-08 15:39] LABS: Basophils # (A) 0.1 k/uL (0-0.2); Basophils % (A) 1 %; Eosinophils # (A) 1.9 k/uL (0-0.7); Eosinophils % (A) 24 %; HCT 37.3 % (34.0-46.0); HGB 12.7 gm/dL (11.4-16.0); Lymphocytes # (A) 1.6 k/uL (1.0-4.8); Lymphocytes % (A) 19 %; MCH 32.6 pg (25.0-35.0); MCHC 34.1 g/dL (31.0-37.0); MCV 95.5 fL (80.0-100.0); Monocytes # (A) 0.5 k/uL (0-1.0); Monocytes % (A) 6 %; Neutrophils # (A) 3.9 k/uL (1.3-7.7); Neutrophils % (A) 48 %; Platelet Count 232 k/uL (150-450); RBC 3.91 m/uL (3.80-5.40); RDW 13.3 % (11.5-15.5); WBC 8.2 k/uL (3.8-10.6)
[2023-10-08 15:42] LABS: ALT 32 U/L (4-34); AST 31 U/L (14-36); African American GFR (CKD) >90 (>60 ml/min/1.73 sqM); Albumin 4.3 g/dL (3.5-5.0); Alkaline Phosphatase 76 U/L (38-126); Anion Gap 8 mmol/L; Blood Urea Nitrogen 18 mg/dL (7-17); Calcium 9.4 mg/dL (8.4-10.2); Carbon Dioxide 23 mmol/L (22-30); Chloride 110 mmol/L (98-107); Glucose 106 mg/dL (74-99); INR 0.9 (<1.2); Non-African American GFR(CKD) >90 (>60 ml/min/1.73 sqM); Partial Thromboplastin Time 23.6 sec (22.0-30.0); Potassium 4.1 mmol/L (3.5-5.1); Prothrombin Time 10.5 sec (10.0-12.5); Sodium 141 mmol/L (137-145); Total Bilirubin 0.5 mg/dL (0.2-1.3); Total Protein 6.3 g/dL (6.3-8.2)
[2023-10-08 15:50] LABS: NT-Pro-B-Type Natriuretic Pept 50 pg/mL
--- NOTE | 2023-10-08 17:04 | XR ---
EXAMINATION TYPE: XR chest 2V DATE OF EXAM: 10/08/2023 4:05 PM CLINICAL INDICATION:Female, 73 years old with history of difficulty breathing; [facility] COMPARISON: Chest radiographs from 09/27/2023 TECHNIQUE: XR chest 2V Frontal and lateral views of the chest. FINDINGS: Lungs/Pleura: There is flattening of the diaphragm with increased lucency of the lungs. No evidence o f pneumothorax, pleural effusion or focal consolidation. Pulmonary vascularity: Unremarkable. Heart/mediastinum: Cardiomediastinal silhouette is unremarkable. Musculoskeletal: No acute osseous pathology. IMPRESSION: 1. No acute cardiopulmonary disease process. 2. COPD changes.
[2023-10-08] MEDS ORDERED: NALOXONE 0.4 MG/ML 1 ML VIAL IVP PRN (18:04)
[2023-10-08] MEDS: methylPREDNISolone SOD SUCCI 125 MG/2 ML VIAL IV STA (18:29)
[2023-10-08] MEDS: ENALAPRILAT 1.25 MG/ML 1 ML VIAL IVP STA (19:40)
[2023-10-08] MEDS: IPRATROPIUM-ALBUTEROL 3 ML NEB INHALATION SCH (19:43)
[2023-10-08] MEDS: ACETAMINOPHEN TAB 325 MG TAB PO PRN (22:39)
[2023-10-08] MEDS: methylPREDNISolone SOD SUCCI 125 MG/2 ML VIAL IV SCH (22:40)
[2023-10-08] MEDS: BENZONATATE 100 MG CAP PO PRN (22:43)
[2023-10-08] MEDS: IPRATROPIUM-ALBUTEROL 3 ML NEB INHALATION PRN (22:54)
[2023-10-09 00:32] VITALS: RESP 18
[2023-10-09 08:02] VITALS: TEMP 98.5
[2023-10-09 10:13] VITALS: BP 160/78
[2023-10-09] MEDS: ALBUTEROL NEBULIZED 2.5 MG/3 ML INHALATION SCH (11:23)
[2023-10-09] MEDS ORDERED: guaiFENesin-DM 100-10MG/5ML 10 ML CUP PO PRN (11:27)
[2023-10-09] MEDS ORDERED: SODIUM CHLORIDE 0.9% 1,000 ML IV SCH (11:30)
[2023-10-09] MEDS: VENLAFAXINE HCL 37.5 MG TAB PO SCH (11:35)
[2023-10-09] MEDS: MULTIVITAMINS, THERA 1 EACH TAB PO SCH (11:36)
[2023-10-09] MEDS: busPIRone HCl 10 MG TAB PO SCH (11:36)
[2023-10-09 11:45] VITALS: PULSE 124
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
--- NOTE | 2023-10-09 11:45 | P.DS ---
Providers Date of admission: 10/08/23 19:39 Attending physician: Mario Kee Primary care physician: Bill Damon [facility] Course: 73-year-old female came with complaints of shortness of breath patient was having symptoms of rhinosinusitis sinusitis which appear to be acute on chronic has been going on for some time patient had a history of asthma but did not have any significant episodes since childhood. Patient apparently was wheezing on admission but no wheezing when I evaluate the patient and patient is saturating well patient although has been tachycardic and hypotensive because of coughing and breathing treatments. Patient is otherwise clinically doing well patient does have some sinus tenderness. Patient completed a course of antibiotics for allergic rhinitis and sinusitis without any significant improvement. Patient is complaining of postnasal discharge PHYSICAL EXAMINATION: GENERAL: The patient is alert and oriented x3, not in any acute distress. Well developed, well nourished. HEENT: Pupils are round and equally reacting to light. EOMI. No scleral icterus. No conjunctival pallor. Normocephalic, atraumatic. No pharyngeal erythema. No thyromegaly. CARDIOVASCULAR: S1 and S2 present. No murmurs, rubs, or gallops. PULMONARY: Chest is clear to auscultation, no wheezing or crackles. ABDOMEN: Soft, nontender, nondistended, normoactive bowel sounds. No palpable organomegaly. MUSCULOSKELETAL: No joint swelling or deformity. EXTREMITIES: No cyanosis, clubbing, or pedal edema. NEUROLOGICAL: Gross neurological examination did not reveal any focal deficits. SKIN: No rashes. Assessment and plan -Possible asthma exacerbation: Patient improved with steroids and breathing treatments patient will be discharged on Medrol Dosepak and the patient already has an albuterol was advised to buy a spacer for that -Chronic and acute allergic rhinosinusitis patient will be discharged on Flonase, Claritin and Robitussin DM for dry cough. Patient will be referred to ENT. -Depression continue with buspirone Patient will be discharged today to follow-up with PCP and ENT as an outpatient Patient Condition at Discharge: Stable Plan - Discharge Summary New Discharge Prescriptions: New Fluticasone Nasal [place] [Flonase Nasal [place]] 2 spray EA NOSTRIL DAILY #16 gm Famotidine [Pepcid] 20 mg PO BID #30 tablet Azithromycin [Zithromax] 0 mg PO DIRECTED #6 tab guaiFENesin-DM 100-10MG/5ML [Robitussin DM] 5 ml PO QID PRN #250 ml PRN Reason: Cough Loratadine [Claritin] 10 mg PO DAILY #30 tab methylPREDNISolone Dose Pack [Medrol Dose Pack] 4 mg PO DIRECTED #21 tab Continue busPIRone HCL 10 mg PO Q6H Multivitamins, Thera [Multivitamin (formulary)] 1 tab PO DAILY Venlafaxine HCl [Effexor] 37.5 mg PO DAILY Atorvastatin [Lipitor] 40 mg PO HS Albuterol Nebulized [Ventolin Nebulized] 2.5 mg INHALATION RT-Q4H Latanoprost [Latanoprost 0.005%] 1 drop LEFT EYE HS Discharge Medication List Albuterol Nebulized [Ventolin Nebulized] 2.5 mg INHALATION RT-Q4H 10/08/23 [History] Atorvastatin [Lipitor] 40 mg PO HS 10/08/23 [History] Multivitamins, Thera [Multivitamin (formulary)] 1 tab PO DAILY 10/08/23 [History] Venlafaxine HCl [Effexor] 37.5 mg PO DAILY 10/08/23 [History] busPIRone HCL 10 mg PO Q6H 10/08/23 [History] Azithromycin [Zithromax] 0 mg PO DIRECTED #6 tab 10/09/23 [Rx] Famotidine [Pepcid] 20 mg PO BID #30 tablet 10/09/23 [Rx] Fluticasone Nasal [place] [Flonase Nasal [place]] 2 spray EA NOSTRIL DAILY #16 gm 10/09/23 [Rx] Latanoprost [Latanoprost 0.005%] 1 drop LEFT EYE HS 10/09/23 [History] Loratadine [Claritin] 10 mg PO DAILY #30 tab 10/09/23 [Rx] guaiFENesin-DM 100-10MG/5ML [Robitussin DM] 5 ml PO QID PRN #250 ml 10/09/23 [Rx] methylPREDNISolone Dose Pack [Medrol Dose Pack] 4 mg PO DIRECTED #21 tab 10/09/23 [Rx] Follow up Appointment(s)/Referral(s): Ashwin Dee MD [STAFF PHYSICIAN] - 3 Days Radha,Bill M, DO [Primary Care Provider] - 3 Days
[2023-10-09] MEDS: FLUTICASONE 50MCG/SPRAY NASAL 16GM EA NOSTRIL SCH (11:57)
[2023-10-09] MEDS: AZITHROMYCIN 500 MG TAB PO SCH (11:57)
[2023-10-09] MEDS ORDERED: methylPREDNISolone SOD SUCCI 40 MG/ML 1 ML VIAL IV SCH (21:00)
[2023-10-09] MEDS ORDERED: LATANOPROST 0.005% OPHTH DROPS 2.5 ML BTL LEFT EYE SCH (21:00)
[2023-10-09] MEDS ORDERED: ATORVASTATIN 40 MG TAB PO SCH (21:00)
== END 2023-10-09 14:39 | disposition home or self-care (01) ==
LOC: EC 14:05 → 6NMEDSUR 19:39
PROVIDERS: ADMIT Hospitalist; ATTEND Hospitalist
DX: J45.901 Unspecified asthma with (acute) exacerbation (principal); I10 Essential (primary) hypertension; F41.9 Anxiety disorder, unspecified; F32.A Depression, unspecified; Z79.899 Other long term (current) drug therapy; Z88.8 Allergy status to other drugs, medicaments and biological substances; Z88.6 Allergy status to analgesic agent; Z87.891 Personal history of nicotine dependence
CPT/HCPCS: 96376 ×2; 96374; 96375; 99285; 36415; 94640 ×4; 93005; 83880; 80053; 84484; 85025; 85610; 85730; 71046; G0378 ×2; J2930 ×2

== ENCOUNTER → 2023-11-15 | Outpatient (CLI) | payer BC ==
[2023-11-16 01:02] LABS: Aspergillus fumagatus IgE 1.05 kU/L; Birch IgE <0.10 kU/L; Cat Epith & Dander IgE <0.10 kU/L; Cockroach IgE <0.10 kU/L; Dermato. farinae IgE 3.62 kU/L; Dog Dander IgE <0.10 kU/L; Maple (Box Elder) IgE <0.10 kU/L; Ragweed,Common IgE <0.10 kU/L
[2023-11-16 01:03] LABS: Oak IgE <0.10 kU/L; Walnut IgE (Food) <0.10 kU/L
[2023-11-16 11:17] LABS: Yeast Bakers/Brew IgE <0.10 kU/L (<0.10); Yeast Bakers/Brew IgE Class CLASS 0
[2023-11-16 14:31] LABS: Johnson Grass IgE Class CLASS 0; Timothy Grass IgE <0.10 kU/L (<0.10); Timothy Grass IgE Class CLASS 0
[2023-11-16 14:32] LABS: Aureo. pullulans IgE <0.10 kU/L (<0.10); Aureo. pullulans IgE Class CLASS 0; Clad herbarum IgE <0.10 kU/L (<0.10); Clad herbarum IgE Class CLASS 0; Rhizopus nigricans IgE <0.10 kU/L (<0.10); Rhizopus nigricans IgE Class CLASS 0
[2023-11-16 14:33] LABS: Epicoccum purpurascens Class CLASS 0; Epicoccum purpurascens IgE <0.10 kU/L (<0.10)
[2023-11-16 14:34] LABS: Candida albicans IgE Class CLASS 0; Mucor racemosus IgE <0.10 kU/L (<0.10); Mucor racemosus IgE Class CLASS 0
[2023-11-16 14:35] LABS: Alt. alternata IgE Class CLASS 0; Alternaria alternata IgE <0.10 kU/L (<0.10); S.rostrata/Helminth Class CLASS 0; S.rostrata/Helminth IgE <0.10 kU/L (<0.10); Sycamore(Mpl.Lf) IgE <0.10 kU/L (<0.10); Sycamore(Mpl.Lf) IgE Class CLASS 0
[2023-11-16 14:36] LABS: Com. Pigweed IgE <0.10 kU/L (<0.10); Com. Pigweed IgE Class CLASS 0; Cottonwood IgE <0.10 kU/L (<0.10); Lamb's Quarter IgE <0.10 kU/L (<0.10); Lamb's Quarter IgE Class CLASS 0; White Ash IgE Class CLASS 0
[2023-11-16 14:37] LABS: Ragweed, Giant IgE <0.10 kU/L (<0.10); Ragweed, Giant IgE Class CLASS 0
== END | disposition home or self-care (01) ==
LOC: LABWHC1 13:30
PROVIDERS: ATTEND Otolaryngology
DX: J30.89 Other allergic rhinitis (principal)
CPT/HCPCS: 36415; 86001; 86003

== ENCOUNTER → 2024-01-22 | Outpatient (CLI) | payer BC ==
[2024-01-22 12:53] LABS: African American GFR (CKD) >90 (>60 ml/min/1.73 sqM); Blood Urea Nitrogen 25 mg/dL (7-17); Non-African American GFR(CKD) 87 (>60 ml/min/1.73 sqM)
--- NOTE | 2024-02-01 10:39 | CT ---
EXAMINATION TYPE: CT chest w con CT DLP: mGycm, Automated exposure control for dose reduction was used. DATE OF EXAM: 01/22/2024 1:09 PM COMPARISON: No prior no chest CT 04/28/2022. CLINICAL INDICATION:Female, 73 years old with history of D86.9 SARCOIDOSIS, UNSPECIFIED; [facility], TECHNIQUE: Multiple axial images were obtained through the chest. Sagittal and coronal reformats were created for review. Contrast used: 100 mL of (None if empty) Oral contrast used: (None if empty) FINDINGS: LUNGS/ PLEURA: Several patchy airspace consolidation process identified bilaterally without surroundi ng inflammatory response compatible with quiescent sarcoidosis.. AIRWAY: and unremarkable. HEART: Size within normal limits. Mild/moderate calcific coronary artery disease present MEDIASTINUM: Mediastinal and hilar lymph nodes showing central calcification consistent with granulom atous disease such as sarcoidosis VASCULATURE: No aortic aneurysm. MUSCULOSKELETAL: No acute osseous abnormalities SOFT TISSUES/LYMPH NODES: Unremarkable. LOWER NECK: No significant findings. UPPER ABDOMEN: No significant findings. IMPRESSION: Mediastinal and hilar adenopathy and patchy airspace disease consistent with sarcoidosis. Mild to moderate calcific coronary artery disease
== END | disposition home or self-care (01) ==
LOC: RADCTMAIN 11:50
PROVIDERS: ATTEND Internal Medicine Critical Care Medicine
DX: I25.10 Atherosclerotic heart disease of native coronary artery without angina pectoris (principal); D86.9 Sarcoidosis, unspecified; J98.4 Other disorders of lung; R59.0 Localized enlarged lymph nodes
CPT/HCPCS: 82565; 84520; 71260; 36415; Q9967

== ENCOUNTER → 2024-03-06 | Outpatient (CLI) | payer BC ==
--- NOTE | 2024-03-06 16:51 | XR ---
EXAMINATION TYPE: XR shoulder complete 3 views LT DATE OF EXAM: 03/06/2024 Comparison: None Clinical History: 73-year-old female M25.519 PAIN IN UNSPECIFIED SHOULDER Findings: Mild degenerative joint space narrowing at the AC joint. Subacromial space is preserved. No tendinous or bursal calcifications. Mild degenerative spurring at the glenohumeral joint on the Grashey view. No acute fracture, subluxation, dislocation. Impression: Mild AC and GH joint OA. No acute osseous abnormality seen.
== END | disposition home or self-care (01) ==
LOC: RADXRMAIN 15:47
PROVIDERS: ATTEND Family Medicine
DX: M19.012 Primary osteoarthritis, left shoulder (principal)

== ENCOUNTER → 2024-12-25 | Outpatient (CLI) | payer MEDICARE ==
[2024-12-25 15:32] LABS: Chol/HDL Ratio 2.71 Ratio; LDL Cholesterol,Calculated 48.5 mg/dL (0.0-131.0)
[2024-12-25 15:38] LABS: ALT 23 U/L (8-44); AST 31 U/L (13-35)
== END | disposition home or self-care (01) ==
LOC: LABWHC1 10:32
PROVIDERS: ATTEND Internal Medicine
DX: E78.2 Mixed hyperlipidemia (principal)
CPT/HCPCS: 36415; 80061; 84450; 84460